=== PATIENT | male | born 1965 | race Caucasian/White ===

== ENCOUNTER 2020-08-22 08:04 | Emergency (ER) | payer BC, SELFPAY ==
--- NOTE | ~2020-08-22 | XR_ITS ---
XR chest 2V 08/22/2020 08:42 Indication: Chest tightness Procedure: PA and lateral views of the chest Comparison: 05/23/2015 Findings: Heart size is normal. Right lung clear. There is lingular atelectasis/scarring, chronic. No pleural effusion, focal pneumonia, edema or pneumothorax. No acute osseous abnormality. Impression: 1: Chronic lingular atelectasis/scarring. Reviewed, dictated and finalized at location [facility]. Impression: 1: Chronic lingular atelectasis/scarring.
[2020-08-22 08:10] VITALS: BP 158/93; PULSE 81; RESP 14; TEMP 36.4; O2SAT 98
--- NOTE | 2020-08-22 08:15 | ECG_ITS ---
Measurements Intervals [place] Rate: 70 P: -5 NV: 143 QRS: 8 QRSD: 86 T: 24 QT: 362 QTc: 392 Interpretive Statements SINUS RHYTHM WITH SINUS ARRHYTHMIA BASELINE WANDER- I, III, AVF NORMAL ECG Electronically Signed On 08-22-2020 8:18:46 CDT by Patrick Stone D.O.
[2020-08-22 08:19] VITALS: PULSE 80
--- NOTE | 2020-08-22 08:21 | ED.CHESTPAIN ---
HPI - Chest Pain General Chief Complaint: Chest Pain Stated Complaint: chest tightness Time Seen by Provider: 08/22/20 08:07 Source: patient, RN notes reviewed and old records reviewed Mode of arrival: ambulatory Limitations: no limitations History of Present Illness HPI narrative: This is a 55 year old male who presents for evaluation of midsternal chest tightness. He states he developed constant nonradiating midsternal chest tightness at 1 am this morning. He has associated cold sweats and diffuse abdominal discomfort. This started a few hours after eating a chili dog with custard ice cream at 10 pm last night. He denies associated back pain, sob, cough, nausea, vomiting, fever or diarrhea. He took 4 baby aspirin this morning but he has not tried anything else for his pain. MD complaint: chest discomfort Related Data Allergies Allergy/AdvReac Type Severity Reaction Status Date / Time Sulfa (Sulfonamide Allergy Mild Rash Verified 08/22/20 08:14 Antibiotics) Review of Systems Review of Systems: All systems reviewed & are unremarkable except as noted in HPI and below Constitutional: Constitutional: Denies chills and Denies fever(s) ENT: Denies sore throat Cardiovascular: Cardiovascular: Reports chest pain and Denies radiating jaw, neck or arm pain Respiratory: Respiratory: Denies cough and Denies dyspnea Gastrointestinal: Gastrointestinal: Reports abdominal pain, Denies diarrhea, Denies nausea and Denies vomiting Musculoskeletal: Musculoskeletal: Denies back pain Neurologic: Denies headache(s) [facility] Past Medical History Medical History (Updated 08/22/20 @ 11:59 by Katlin Dwyer MD) Ulcerative colitis Surgical History Surgical History (Updated 08/22/20 @ 08:22 by Katlin Dwyer MD) No pertinent past surgical history Exam Const: General: no acute distress and alert Orientation/consciousness: patient oriented x3 Eyes: EOM: EOMs intact bilaterally Resp: Effort & Inspection: normal respiratory effort and no retractions Auscultation: clear to auscultation bilaterally Cardio: Rate: regular rate Rhythm: regular rhythm Heart sounds: no murmurs GI: GI Palp: Yes Soft to palpation, No Tenderness to palpation present (GI) and No Guarding due to palpation present (GI) Auscultation: normal bowel sounds Neuro: General: patient oriented x3, moves all extremities and CN's II-XI intact bilaterally Psych: Mental Status: mental status grossly normal Affect: normal affect Course Reevaluation(s) Reevaluation #1: I discussed with patient that labs were unremarkable. His chest discomfort has resolved. I believe his symptoms are likely GI but he will follow up with PCP. I discussed no HI but he will still need to follow up with PCP to see if needed evaluated of heart disease. Date: 08/22/20 Time: 11:57 Vital Signs Vital signs: Vital Signs Temperature 97.6 F 08/22/20 08:10 Pulse Rate 81 08/22/20 08:10 Respiratory Rate 14 08/22/20 08:10 Blood Pressure 158/93 H 08/22/20 08:10 Pulse Oximetry 98 08/22/20 08:10 Temperature 97.6 F 08/22/20 08:10 Pulse Rate 69 08/22/20 12:00 Respiratory Rate 16 08/22/20 12:00 Blood Pressure 109/74 08/22/20 12:00 Pulse Oximetry 99 08/22/20 12:00 MDM - Chest Pain Medical Records Data Attestation: I reviewed the patient's medical records. Lab Data Attestation: I reviewed the patient's lab results. Result diagrams: 08/22/20 08:32 08/22/20 08:32 Labs: Lab Results 08/22/20 08/22/20 08/22/20 Range/Units 08:32 08:32 08:32 WBC 8.2 (4.5-10.0) K/mm3 RBC 4.75 (4.6-6.20) M/mm3 Hgb 14.4 (14.0-18.0) g/dL Hct 44.5 (42.0-52.0) % MCV 93.7 (80-100) fl MCH 30.3 (26-34) pg MCHC 32.4 (32-36) g/dl RDW 12.1 (11.5-14.5) % Plt Count 252 (150-375) k/mm3 MPV 10.4 (7.4-10.4) fl Immature Gran % (Auto) 0.5 (0-0.5) % Neut % (Auto) 43.4 L (45.5-73.1
[2020-08-22] MEDS: BELLADONNA ALK/PHENOB ELIX 10 ML, MAG HYDROX/ALUMINUM HYD/SIMETH 30 ML, LIDOCAINE HCL 2... PO (08:27)
[2020-08-22] MEDS: PANTOPRAZOLE SODIUM IV 40 MG VIAL IV PUSH (08:30)
[2020-08-22 08:42] LABS: Basophils Absolute Auto 0.1 K/mm3 (0.0-0.1); Basophils Percent Auto 0.9 % (0.2-1.2); Eosinophils Absolute Auto 0.4 K/mm3 (0-0.3); Eosinophils Percent Auto 4.6 % (0-4.4); Hematocrit 44.5 % (42.0-52.0); Hemoglobin 14.4 g/dL (14.0-18.0); Immature Granulocyte Absolute 0.04 K/mm3 (0.00-0.031); Immature Granulocyte Percent A 0.5 % (0-0.5); Lymphocytes Absolute Auto 3.39 K/mm3 (0.9-3.2); Lymphocytes Percent Auto 41.2 % (18.3-44.2); Mean Corpuscular HGB Conc 32.4 g/dl (32-36); Mean Corpuscular Hemoglobin 30.3 pg (26-34); Mean Corpuscular Volume 93.7 fl (80-100); Mean Platelet Volume 10.4 fl (7.4-10.4); Monocytes Absolute Auto 0.8 K/mm3 (0.1-0.6); Monocytes Percent Auto 9.4 % (2.6-8.5); Neutrophils Absolute Auto 3.6 K/mm3 (1.3-6.7); Neutrophils Percent Auto 43.4 % (45.5-73.1); Platelet Count Result 252 k/mm3 (150-375); Red Blood Count 4.75 M/mm3 (4.6-6.20); Red Cell Distribution Width 12.1 % (11.5-14.5); White Blood Count 8.2 K/mm3 (4.5-10.0)
[2020-08-22 08:47] LABS: Alanine Aminotransferase 13 U/L (4-50); Alkaline Phosphatase 80 U/L (38-126); Anion Gap 2 mmol/L (8-16); Aspartate Amino Transferase 27 U/L (17-59); Bilirubin,Total 0.2 mg/dL (0.2-1.3); Blood Urea Nitrogen 18 mg/dL (9-20); Calcium 9.1 mg/dL (8.4-10.2); Carbon Dioxide 30 mmol/L (22-30); Chloride 107 mmol/L (98-107); Estimated CRCL calculation 78 ml/min; Estimated Glomerular Filt Rate > 60; Glucose 107 mg/dL (75-110); Lipase 119 U/L (23-300); Potassium 4.2 mmol/L (3.4-5.0); Sodium 139 mmol/L (137-145)
[2020-08-22 08:59] LABS: Troponin I < 0.012 ng/mL (0.000-0.034)
[2020-08-22 09:11] VITALS: BP 123/75; PULSE 70; RESP 14; O2SAT 99
[2020-08-22 09:11] LABS: INR 0.8; Prothrombin Time 11.6 Seconds (11.1-14.7)
[2020-08-22 09:12] LABS: Partial Thromboplastin Time 29.1 SECONDS (22.3-36.8)
[2020-08-22 09:20] LABS: D Dimer 0.27 ug/mL (<0.48)
[2020-08-22 10:20] VITALS: BP 107/84; PULSE 67; RESP 14; O2SAT 98
[2020-08-22 11:21] VITALS: BP 107/77; PULSE 67; RESP 14; O2SAT 98
[2020-08-22 11:43] LABS: Troponin I < 0.012 ng/mL (0.000-0.034)
[2020-08-22 12:00] VITALS: BP 109/74; PULSE 69; RESP 16; O2SAT 99
== END 2020-08-22 12:37 | disposition home or self-care (01) ==
PROVIDERS: Emergency Provider General Practice
DX: R07.89 Other chest pain (principal)
CPT/HCPCS: 36415; 71046; 80048; 80076; 83690; 84484; 85025; 85380; 85610; 85730; 93005; 96374; 99284; A9270; C9113

== ENCOUNTER 2023-09-16 12:02 | Day surgery (SDC) | payer OTHER, SELFPAY ==
[2023-09-16] VITALS (8 sets, daily range): BP systolic 108–132; BP diastolic 64–86; PULSE 92–117; RESP 13–18; TEMP 36.2–36.9; O2SAT 93–100
--- NOTE | ~2023-09-16 | CT_ITS ---
EXAMINATION: CT abdomen pelvis w con DATE: 09/16/2023 13:56 INDICATION: Right upper and lower quadrant abdominal pain TECHNIQUE: Computed tomography (CT) of the abdomen and pelvis was performed with 100 CC Omnipaque 350 intravenous contrast. Automated exposure control and iterative reconstruction technique were employe d. Exam dose: 1062.56 mGy-cm total exam DLP. COMPARISON: None. FINDINGS: The lung bases are clear of infiltrate or consolidation. Normal heart size. No pericardial or pleural effusion. Very small sliding hiatal hernia. 1.5 cm peripherally calcified gallstone. No gallbladder wall thickening or pericholecystic fluid or f at stranding. The liver, spleen, pancreas, adrenal glands are unremarkable. There are several left renal cysts, the largest 12 mm. No ureteral calculus or hydroureteronephrosis. Minimal prostate calcification and prostate enlargemen t. The urinary bladder is unremarkable. Normal caliber of the abdominal aorta. No intraperitoneal or retroperitoneal or pelvic mass lesion or adenopathy or ascites. The appendix is dilated up to approximately 1.4 cm diameter. There is thickening of the appendiceal wall. There is surrounding fat infiltration and thickening of the anterior pararenal fascia and late roconal fascia. Diverticulosis of left and right colon; no CT evidence of diverticulitis. No bowel obstruction, bowel wall thickening, pneumatosis or intraperitoneal free air. Small bilateral fat-containing inguinal hernias. Small fat-containing umbilical hernia. IMPRESSION: Acute appendicitis, with mild periappendiceal inflammatory change. No abscess or free ai r is identified Diverticulosis of left and right colon; no evidence of diverticulitis Cholelithiasis Very small sliding hiatal hernia Reviewed, dictated and finalized at Location A. Reviewed, dictated and finalized at location B. IMPRESSION: Acute appendicitis, with mild periappendiceal inflammatory change. No abscess or free air is identified Diverticulosis of left and right colon; no evidence of diverticulitis Cholelithiasis Very small sliding hiatal hernia
[2023-09-16 12:45] LABS: Basophils Absolute Auto 0.1 K/mm3 (0.0-0.1); Basophils Percent Auto 0.5 % (0.2-1.2); Eosinophils Absolute Auto 0.2 K/mm3 (0-0.3); Eosinophils Percent Auto 1.4 % (0-4.4); Hematocrit 47.1 % (42.0-52.0); Hemoglobin 15.6 g/dL (14.0-18.0); Immature Granulocyte Absolute 0.06 K/mm3 (0.00-0.031); Immature Granulocyte Percent A 0.4 % (0-0.5); Lymphocytes Absolute Auto 2.22 K/mm3 (0.9-3.2); Lymphocytes Percent Auto 13.1 % (18.3-44.2); Mean Corpuscular HGB Conc 33.1 g/dl (32-36); Mean Corpuscular Volume 93.6 fl (80-100); Mean Platelet Volume 10.5 fl (7.4-10.4); Monocytes Absolute Auto 1.1 K/mm3 (0.1-0.6); Monocytes Percent Auto 6.7 % (2.6-8.5); Neutrophils Absolute Auto 13.2 K/mm3 (1.3-6.7); Neutrophils Percent Auto 77.9 % (45.5-73.1); Platelet Count Result 279 k/mm3 (150-375); Red Blood Count 5.03 M/mm3 (4.6-6.20); White Blood Count 16.9 K/mm3 (4.5-10.0)
[2023-09-16 12:57] LABS: Alanine Aminotransferase 15 U/L (6-50); Albumin Level 4.6 g/dL (3.5-5.1); Alkaline Phosphatase 75 U/L (38-126); Anion Gap 9 mmol/L (4-12); Aspartate Amino Transferase 23 U/L (17-59); Bilirubin,Total 0.9 mg/dL (0.2-1.3); Blood Urea Nitrogen 13 mg/dL (9-20); Calcium 9.4 mg/dL (8.4-10.2); Carbon Dioxide 24 mmol/L (22-30); Chloride 104 mmol/L (98-107); Estimated CRCL calculation 91 ml/min; Estimated Glomerular Filt Rate > 60; Glucose 108 mg/dL (65-110); Lipase 81 U/L (23-300); Potassium 4.2 mmol/L (3.4-5.0); Sodium 137 mmol/L (137-145)
[2023-09-16 12:59] LABS: Lactic Acid Reflex 1.2 mmol/L (0.7-2.0)
[2023-09-16 13:27] LABS: Appearance Urine Clear (Clear); Bilirubin Urine Negative (Negative); Blood Urine Negative (Negative); Color Urine Yellow (Yellow); Glucose Urine UA Negative (Negative); Ketones Urine Negative (Negative); Leukocyte Esterase Ur Negative LEU/UL (Negative); Nitrate Urine Negative (Negative); Protein Urine Negative (Negative); Specific Grav Ur 1.013 (1.001-1.035); Urobilinogen Urine 0.2 mg/dL (<2.0)
[2023-09-16 13:30] LABS: Add Urine Microscopic? NO
--- NOTE | 2023-09-16 14:25 | ED.ABDPAIN ---
HPI - Abdominal Pain General Chief Complaint: Abdominal Pain Stated Complaint: constipation, tenderness right side Time Seen by Provider: 09/16/23 13:17 History of Present Illness HPI narrative: 58-year-old male presents to the emergency room for evaluation of right upper quadrant abdominal pain that began this morning. Patient denies fever. States pain radiates into his right lower quadrant. Reports feeling constipated with the small bowel movement this morning. Denies any blood in the stool. Patient also complaining of feeling bloated. Complain with nausea no vomiting. Related Data Allergies Allergy/AdvReac Type Severity Reaction Status Date / Time Sulfa (Sulfonamide Allergy Mild Rash Verified 09/16/23 12:32 Antibiotics) Review of Systems Review of Systems: ROS unremarkable except for stated in HPI PMF Past Medical History Medical History Ulcerative colitis Surgical History Surgical History No pertinent past surgical history Exam Narrative: GENERAL: Well-appearing, well-nourished, no physical limitations, and in no acute distress. HEAD: Normocephalic, atraumatic. EYES: Conjunctivae normal, PERRLA and EOMI. CHEST: Clear to auscultation. No respiratory distress. No wheezes rales or rhonchi. No tenderness. HEART: Regular rate and rhythm. No murmur heard. Normal peripheral pulses. ABDOMEN: Soft, right upper quadrant tenderness, nondistended, normal active bowel sounds. Negative heel strike. Negative psoas and obturator signs. No rebound tenderness BACK: No CVA tenderness EXTREMITIES: Normal range of motion. No edema. No clubbing or cyanosis SKIN: Warm, dry, no rash. No noted wounds NEURO: No focal deficits. Alert and oriented x3. MAEW. CN's II-XI intact bilaterally, normal gait PSYCH: Cooperative. Normal mood and affect. Course Course Emergency Course: MD Sykes service at bedside to evaluate patient. Patient to go to surgical suite this afternoon. Vital Signs Vital signs: Vital Signs Temperature 36.9 C 09/16/23 12:15 Pulse Rate 100 09/16/23 12:15 Respiratory Rate 18 09/16/23 12:15 Blood Pressure 115/82 09/16/23 12:15 Pulse Oximetry 100 09/16/23 12:15 Oxygen Delivery Room Air 09/16/23 12:15 Temperature 36.9 C 09/16/23 12:15 Pulse Rate 100 09/16/23 12:15 Respiratory Rate 18 09/16/23 12:15 Blood Pressure 115/82 09/16/23 12:15 Pulse Oximetry 100 09/16/23 12:15 Oxygen Delivery Room Air 09/16/23 12:15 MDM - Abdominal Pain Lab Data 09/16/23 12:36 09/16/23 12:36 Labs: Lab Results 09/16/23 09/16/23 Range/Units 12:36 13:20 WBC 16.9 H (4.5-10.0) K/mm3 RBC 5.03 (4.6-6.20) M/mm3 Hgb 15.6 (14.0-18.0) g/dL Hct 47.1 (42.0-52.0) % MCV 93.6 (80-100) fl MCH 31.0 (26-34) pg MCHC 33.1 (32-36) g/dl RDW 12.0 (11.5-14.5) % Plt Count 279 (150-375) k/mm3 MPV 10.5 H (7.4-10.4) fl Immature Gran % (Auto) 0.4 (0-0.5) % Neut % (Auto) 77.9 H (45.5-73.1) % Lymph % (Auto) 13.1 L (18.3-44.2) % [place] % (Auto) 6.7 (2.6-8.5) % Eos % (Auto) 1.4 (0-4.4) % Baso % (Auto) 0.5 (0.2-1.2) % Lymph # (Auto) 2.22 (0.9-3.2) K/mm3 [place] # (Auto) 1.1 H (0.1-0.6) K/mm3 Eos # (Auto) 0.2 (0-0.3) K/mm3 Baso # (Auto) 0.1 (0.0-0.1) K/mm3 Abs Immat Gran (auto) 0.06 H (0.00-0.031) K/mm3 Absolute Neuts (auto) 13.2 H (1.3-6.7) K/mm3 Absolute Nucleated RBC 0.000 (0.0-0.012) K/mm3 Nucleated RBC % 0.0 (0.0-0.2) % Sodium 137 (137-145) mmol/L Potassium 4.2 (3.4-5.0) mmol/L Chloride 104 (98-107) mmol/L Carbon Dioxide 24 (22-30) mmol/L Anion Gap 9 (4-12) mmol/L BUN 13 D (9-20) mg/dL Creatinine 0.90 (0.7-1.3) mg/dL Estim Creat Clear Calc 91 ml/min Estimated GFR > 60 (59 - ) Glucose 108 (65-110) mg/dL Lactic Acid
--- NOTE | 2023-09-16 14:59 | PM.HPGS ---
History of Present Illness History of Present Illness Consent: Risks, benefits, and alternatives have been discussed and questions answered. Patient agrees to proceed with procedure. Chief complaint: Right-sided abdominal pain Narrative: Jered Martin is a 58 year old male who presented to the ER today with complaints of right-sided abdominal pain x 24 hours. He reports mild periumbilical pain starting around 2:00 p.m. yesterday afternoon. He was able to go to sleep last night, but woke up this morning with more abdominal pain. His pain localized to the right lower quadrant around 9:00 a.m.. He reports associated nausea, but no vomiting, fever, or chills. Throughout the day, his pain progressively got worse and he began to notice right-sided tenderness. He tried to call his PCP, but was unable to be seen today. Therefore, he came into the ER for evaluation. Labs showed a white blood cell count [id number], but otherwise unremarkable. CT scan of the abdomen and pelvis showed acute appendicitis, with mild periappendiceal inflammatory change. No abscess or free air is identified. Our service was consulted by the ED physician and he is now seen in the ER. He is afebrile and vital signs stable. Review of Systems Review of Systems: All systems reviewed & are unremarkable except as noted in HPI and below PMFSH Past Medical History Medical History (Updated 09/16/23 @ 15:04 by PRASHANT Jose) Hypertension Ulcerative colitis Surgical History Surgical History (Updated 09/16/23 @ 15:04 by PRASHANT Jose) History of colonoscopy No pertinent past surgical history Meds Home Medications and Allergies Home Medications Medication Instructions Recorded Confirmed Type omeprazole 20 mg capsule,delayed 20 mg PO DAILY #30 caps 08/22/20 Rx release Allergies Allergy/AdvReac Type Severity Reaction Status Date / Time Sulfa (Sulfonamide Allergy Mild Rash Verified 09/16/23 12:32 Antibiotics) Vital Signs Vital Signs - 24 hr 09/16/23 12:15 09/16/23 14:49 Temperature 98.4 F Pulse Rate 100 98 Respiratory Rate 18 16 Blood Pressure 115/82 132/86 Pulse Oximetry 100 98 Oxygen Delivery Room Air Exam Const: General: comfortable and no acute distress Nutritional Appearance: average body habitus Orientation/consciousness: patient oriented x3 HENMT: Head: normocephalic and atraumatic Ears: hearing grossly normal bilaterally Mouth: Yes moist mucous membranes Eyes: General: appearance normal, both eyes and all related structures Pupils: Equal, round and reactive pupils present Neck: Neck: normal visual inspection and full ROM Resp: Effort & Inspection: no respiratory distress Auscultation: clear to auscultation bilaterally Cardio: Rate: regular rate Rhythm: regular rhythm Heart sounds: S1 normal heart sound present and S2 normal heart sound present Peripheral pulses: Peripheral pulses 2+ throughout GI: Inspection: non-distended GI Palp: Yes Soft to palpation, Yes Tenderness to palpation present (GI) (Right lower quadrant), No Guarding due to palpation present (GI), Yes No hepatosplenomegaly present, Yes Hernia present (Soft, reducible umbilical hernia with no overlying skin color changes) and No Rebound tenderness present Percussion: Yes normal to percussion Auscultation: normal bowel sounds Skin: General skin exam: normal color Neuro: General: moves all extremities and no focal motor deficits Speech: normal speech Motor exam (neuro): 5/5 motor strength present throughout Extrem: General: normal to inspection and no edema Psych: Mental Status: mental status grossly normal Attitude: cooperative Insight: Good insight present (Psych) Judgement: Good judgement present (Psych) Results Results Additional studies: ITS Impressions Abdomen/Pelvis CT 09/16/23 13:57 IMPRESSION: Acute appendicitis, with mild periappendiceal inflammatory change. No abscess or free air is identified Div
--- NOTE | 2023-09-16 14:59 | WPDANESEPPF ---
Anes - Initial Pre Proc Eval Procedure: Operation Date: 09/16/23 15:30 Proposed Procedures p Laparoscopic Appendectomy - Armand Sykes MD Date/Time: 09/16/23 14:59 Pre Op Diagnosis: Right-sided abdominal pain Patient Data Age: 58 Gender: M Height: 1.73 m Weight: 100 kg Last Vital Signs Temp 36.9 C 09/16/23 12:15 Pulse 98 09/16/23 14:49 Resp 16 09/16/23 14:49 BP 132/86 09/16/23 14:49 Pulse Ox 98 09/16/23 14:49 O2 Del Method Room Air 09/16/23 12:15 Allergies Allergy/AdvReac Type Severity Reaction Status Date / Time Sulfa (Sulfonamide Allergy Mild Rash Verified 09/16/23 12:32 Antibiotics) Home Medications Medication Instructions Recorded Confirmed Type omeprazole 20 mg capsule,delayed 20 mg PO DAILY #30 caps 08/22/20 Rx release Laboratory Tests 09/16/23 09/16/23 12:36 13:20 WBC 16.9 H K/mm3 (4.5-10.0) RBC 5.03 M/mm3 (4.6-6.20) Hgb 15.6 g/dL (14.0-18.0) Hct 47.1 % (42.0-52.0) MCV 93.6 fl (80-100) MCH 31.0 pg (26-34) MCHC 33.1 g/dl (32-36) RDW 12.0 % (11.5-14.5) Plt Count 279 k/mm3 (150-375) MPV 10.5 H fl (7.4-10.4) Immature Gran % (Auto) 0.4 % (0-0.5) Neut % (Auto) 77.9 H % (45.5-73.1) Lymph % (Auto) 13.1 L % (18.3-44.2) [place] % (Auto) 6.7 % (2.6-8.5) Eos % (Auto) 1.4 % (0-4.4) Baso % (Auto) 0.5 % (0.2-1.2) Lymph # (Auto) 2.22 K/mm3 (0.9-3.2) [place] # (Auto) 1.1 H K/mm3 (0.1-0.6) Eos # (Auto) 0.2 K/mm3 (0-0.3) Baso # (Auto) 0.1 K/mm3 (0.0-0.1) Abs Immat Gran (auto) 0.06 H K/mm3 (0.00-0.031) Absolute Neuts (auto) 13.2 H K/mm3 (1.3-6.7) Absolute Nucleated RBC 0.000 K/mm3 (0.0-0.012) Nucleated RBC % 0.0 % (0.0-0.2) Sodium 137 mmol/L (137-145) Potassium 4.2 mmol/L (3.4-5.0) Chloride 104 mmol/L (98-107) Carbon Dioxide 24 mmol/L (22-30) Anion Gap 9 mmol/L (4-12) BUN 13 D mg/dL (9-20) Creatinine 0.90 mg/dL (0.7-1.3) Estim Creat Clear Calc 91 ml/min Estimated GFR > 60 (59 - ) Glucose 108 mg/dL (65-110) Lactic Acid 1.2 mmol/L (0.7-2.0) Calcium 9.4 mg/dL (8.4-10.2) Total Bilirubin 0.9 mg/dL (0.2-1.3) AST 23 U/L (17-59) ALT 15 U/L (6-50) Alkaline Phosphatase 75 U/L (38-126) Total Protein 8.0 g/dL (6.3-8.2) Albumin 4.6 g/dL (3.5-5.1) Lipase 81 U/L (23-300) Urine Color Yellow (Yellow) Urine Appearance Clear (Clear) Urine pH 8.0 (5.0-9.0) Ur Specific [place] 1.013 (1.001-1.035) Urine Protein Negative mg/dL (Negative) Urine Glucose (UA) Negative mg/dL (Negative) Urine Ketones Negative mg/dL (Negative) Ur Blood (Man) Negative (Negative) Urine Nitrate Negative (Negative) Urine Bilirubin Negative (Negative) Urine Urobilinogen 0.2 mg/dL (<2.0) Leukocyte Esterase Rfl Negative KAITLYNN/UL (Negative) Patient hx anesthesia problems: none Family hx anesthesia problems: none Results Review: All pre-operative results and documents have been reviewed as part of the pre-operative evaluation. [facility] Past Medical History Medical History Ulcerative colitis Surgical History Surgical History No pertinent past surgical history Anes - Eval Final PreProcedure Day of Procedure 09/16/23 14:59 Patient weight: obese Heart: regular rate and rhythm Lungs: clear to auscultation Airway: Mallampati scale class II Neurological: alert and oriented Last oral intake: >/= 8 hours ASA classification: III Emergent: no Anesthetic plan: proceed Anesthesia type and monitoring: general ETT and
[2023-09-16] MEDS: cefoTEtan DISODIUM INJ 2 GM in DEXTROSE 5% IN WATER 50 ML IVPB (15:02)
[2023-09-16] MEDS: LACTATED RINGERS 1,000 ML 30 ML IV CONT ×2 (15:20→17:26)
--- NOTE | 2023-09-16 15:37 | WPDHPUPDATE1 ---
History and Physical Update Update Date/Time: 09/16/23 15:37 History and Physical has been reviewed, including an updated exam of the patient. There are NO changes in the patient's condition. Risks, benefits, and alternatives have been discussed and questions answered. Patient agrees to proceed with procedure.
[2023-09-16] MEDS: LIDO 1%/EPINEPHRINE 1:100,000 20 ML VIAL 30 ML INFILTRATE (15:58)
[2023-09-16] MEDS: BUPivacaine HCL 0.5% 10 ML AMP 30 ML INFILTRATE (15:59)
[2023-09-16] MEDS: KETOROLAC 15 MG/ML VIAL (*BKC) IV PUSH (17:17)
--- NOTE | 2023-09-16 17:23 | P.OP_ITS ---
Procedure Note - Detailed Date of Procedure 09/16/23 Pre-op Diagnosis Acute appendicitis Post-op Diagnosis Same Procedure Performed Laparoscopic appendectomy Surgeon Armand Sykes MD Anesthesia General Indications Patient is a 51-year-old gentleman who presented to the emergency room 1 day history of worsening right lower quadrant abdominal pain. He had a white blood count [address] scan abdomen pelvis showed a dilated and acutely inflamed appendix with periappendiceal inflammation. He presents now for a laparoscopic appendectomy. Findings Acutely inflamed appendix lateral to the cecum. The cecum was relatively high- riding just inferior to the right lobe of the liver. The appendix was not perforated but there was periappendiceal inflammation. Description of Procedure After informed consent was obtained patient brought to the operating room was placed supine position and then general endotracheal anesthesia was administered. A Mendez catheter was placed decompress the bladder. The arm was then prepped and draped usual sterile fashion. Time-out was then performed correctly identifying the patient as well as procedure to be performed. He was given IV antibiotics in the emergency room. Her proceeded to enter the abdomen left upper quadrant utilizing a 5mm Optiview port. Once inside the abdomen insufflated to adequate pneumoperitoneum of 15mm of CO2. Then under direct visualization placed a 5mm suprapubic trocar port and another 5mm right lower quadrant trocar port and a 12mm periumbilical trocar port. The appendix is visualized in the right mid lateral abdominal wall. It was lateral to the cecum. Utilizing laparoscopic graspers I was able to identify the base of the appendix as was the terminal ileum. Many defect through the mesoappendix just at the base and then used a 45mm Endo-JEANIE stapler to divide the appendix. The appendix was dissected and the appendiceal stump was flush with the cecum. I then utilized vascular reload to the Endo-JEANIE stapler and divided the mesoappendix. Appendix was then placed into an Endo-Catch bag and brought out through the umbilical trocar port site. It was sent to pathology for examination I irrigated out the right lower quadrant and right lateral portion of the abdomen with sterile saline solution. Hemostasis was good. I then removed all the trocar ports under visualization all port sites appeared hemostatic. I then allowed the abdomen decompressed. The patient is small umbilical hernia and this defect was closed 0 Vicryl suture in a figure-eight fashion and closing the umbilical trocar port site. All the port sites were then closed at skin level utilizing a running subcuticular 4 Monocryl suture. The incisions were then cleaned the skin glue sterile dressings were applied. The patient tolerated the procedure well no complications. All sponges, needles, and instrument counts were correct at the end procedure. EBL was _25__cc. The patient was awakened and taken to recovery in stable and satisfactory condition. Implants None Estimated Blood Loss 25 Drains No Packing No Pathology Yes (Appendix to pathology) Complications No immediate complications Condition Stable Disposition PACU [facility] Billing Surgery - Charge Forward: Surgery Billing
== END 2023-09-16 18:50 | disposition home or self-care (01) ==
LOC: ANHED 14:39 → ANHSURGERY 15:01
PROVIDERS: Emergency Medicine; Emergency Provider Nurse Practitioner Family; Visit Provider Surgery
PROC: 0DTJ4ZZ Resection of Appendix, Percutaneous Endoscopic Approach (ICD-10-PCS; CPT 44970; principal; 2023-09-16 15:30)
DX: K35.80 Unspecified acute appendicitis (principal); E66.9 Obesity, unspecified; Z68.33 Body mass index [BMI] 33.0-33.9, adult
CPT/HCPCS: 44970; 36415; 74177; 80053; 81003; 83605; 83690; 85025; 88304; 99285; J0330; J1100; J1170; J1885; J2250; J2405; J2704; J3010; J7120; Q9967

== ENCOUNTER 2024-09-28 07:05 | Outpatient (CLI) | payer OTHER, SELFPAY ==
--- NOTE | ~2024-09-28 | MR_ITS ---
MRI of the brain Clinical History: Benign neoplasm of cranial nerves Technique: Axial and sagittal T1-weighted images were acquired. These were followed by axial T2-weigh aden, diffusion weighted, gradient, and FLAIR images. Thin cut coronal and axial T1-weighted and T2-we ighted images were acquired through the internal auditory canals. Following intravenous administratio n of 20 cc ProHance gadolinium, T1-weighted fat-sat imaging was performed through the brain in the ax ial and coronal planes. Thin cut axial and coronal T1-weighted postcontrast imaging was also performe d through the internal auditory canals. Findings: No abnormal signal seen in the brain parenchyma. No acute infarct, intracranial hemorrhage, or mass lesion seen. Ventricles and subarachnoid spaces are unremarkable. Orbits are unremarkable. Paranasal sinuses and m astoid air cells are clear. Major intracranial flow voids are intact. Sagittal midline structures are intact. No abnormal mass lesion seen at the internal auditory canals or CP angle regions. No abnormal postcontrast enhancement identified. IMPRESSION: Unremarkable exam. Reviewed, dictated and finalized at location M. IMPRESSION: Unremarkable exam.
--- OUTSIDE RECORDS SUMMARY | 2024-09-28 07:09 | XMS_ITS | Clinical Summary ---
Author Organization [facility] Address [address] [place] [address] Care Team Providers Care Rn Training Name Role Phone Unavailable Primary Care Provider Unavailabl e Source Comments [facility],non-owned Affiliates and Associated Physician Practices is amultiple site organization consisting of ambulatory clinics and hospital sitesin [place], [place], [place] and [place]. This disclosure is being madepursuant to the Care Everywhere program and may not contain all information available regarding this patient. 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 Gender Identity Not on file Sexual Orientation Not on file Plan of Treatment Health Maintenance Due Date Last Done Comments COLOGUARD (AGES 45-75) - COL ON CA SCREENING 1966 COLON MONITORING 1966 COLONOSCOPY - COLON CA SCREENING 1966 CT COLONOGRAPHY - COLON CA SCREENING 1966 Colorectal Cancer Screening 1966 FIT - COLON CA SCREENING 1966 FLEX SIG - COLON CA SCREENING 1966 LIPID TESTING 1966 HIV SCREENING 1981 HEPATITIS C SCREENING 06/20/1984 DTAP/TDAP/TD VACCINES (1 - Tdap) 1985 HEPATITIS B VACCINE (1 of 3 - 19+ 3-dose series) 1985 PNEUMOCOCCAL VACCINE 50+ (1 of 1 - PCV) 2016 ZOSTER VACCINE (1 of 2) 2016 COVID-19 VACCINE (2023-2 5 season) 2023 DEPRESSION SCREENING 04/27/2024 INFLUENZA VACCINE (Season Ended) 2024 HIB VACCINE Aged Out No longer eligi ble based on patient's age to complete this topic HPV VACCINE Aged Out No longer eligi ble based on patient's age to complete this topic MENINGOCOCCAL (Group B) VACC INE SHARED DECISION-MAKING Aged Out No longer eligibl e based on patient's age to complete this topic MENINGOCOCCAL GROUPS A/C/Y/W VACCINE Aged Out No longer eligible b ased on patient's age to complete this topic Procedures Procedure Name Priority Date/Time Associated Diagnosis Comments DERMATOPATHOLOGY Routine 07/05/2024 3:38 PM CDT from Last 3 Months Results * DERMATOPATHOLOGY (07/05/2024 3:38 PM CDT) Case Report Dermatopathology Report Case: [id number] Authorizing Provider: Rosalba Pereira DO Collected: 07/05/2024 03:38 PM Ordering Location: [facility] - Received: 07/07/2024 06:47 AM DermPath Lab Pathologist: Reva Chen MD Specimen: Skin, right crown 4:13 PM CDT DERMATOPATHOLOGY LABORATORY Final Diagnosis Specimen A. 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 The specimen consists of a shave biopsy measuring 7x5x2 mm. Jar 0. 4:13 PM CDT DERMATOPATHOLOGY LABORATORY Microscopic Description Specimen A. SKIN, right crown: Within the dermis there are oval, spindle-shaped and dendritic melanocytes with melanophages. 4:13 PM CDT DERMATOPATHOLOGY LABORATORY Disclaimer An external and internal positive and negative controls are appropriate for the histochemical, immunohistochemical and immunofluorescence stain(s) in this case (if any), except where stated explicitly. The performance characteristics of the stain(s) cited in this report were developed and its performance characteristic determined by the Dermatopathology Laboratory at [facility], directed by Dr. Saundra Morales. These tests need not be, and therefore are not, approved by the [place] Food and Drug Administration. The tests are used for clinical purposes. Billing Codes Specimen Charges Stain Charges 49252 1 5 4:13 PM CDT DERMATOPATHOLOGY LABORATORY Embedded Images 5 4:13 PM CDT DERMATOPATHOLOGY LABORATORY Pathology/Cytolo gy TISSUE SPECIMEN FROM SKIN / Unknown 07/05/2024 3:38 PM CDT 07/07/2024 6:47 AM CDT us Rosalba Pereira DO LAB - PATHOLOGY/CYTOLOGY ORDERABLES Final Result DERMATOPATHOLOGY LABORATORY [facility] - Department of Dermatology [facility] [address] [place] [address], [address] [phone] from Last 3 Months Insurance [employer] * Guarantor: JERED MARTIN Account Type Relation to Patient Date of Phone Billing Address Personal/Family [address] [place] [address] SELF PAY NO INSURANCE Member Subscriber Plan / Payer (Ef fective for All Dates) Name:Jered Martin Member ID:Not on file Relation to Subscriber:Not on file Name:JERED MARTIN Subscriber ID:Not on file Address: [place] [address] Payer ID:Not on file Group ID:Not on file Type:Self Pay Address: [place], [place] * Guarantor: JERED MARTIN Account Type Relation to Patient Date of Phone Billing Address Personal/Family [address] [place] [address] SELF PAY NO INSURANCE Member Subscriber Plan / Payer (Ef fective for All Dates) Name:Jered Martin Member ID:Not on file Relation to Subscriber:Not on file Name:JERED MARTIN Subscriber ID:Not on file Address: [place] [address] Payer ID:Not on file Group ID:Not on file Type:Self Pay Address: [place], [place] * Guarantor: JERED MARTIN Account Type Relation to Patient Date of Phone Billing Address Personal/Family [address] [place] [address] SELF PAY NO INSURANCE Member Subscriber Plan / Payer (Ef fective for All Dates) Name:Jered Martin Member ID:Not on file Relation to Subscriber:Not on file Name:JERED MARTIN Subscriber ID:Not on file Address: [place] [address] Payer ID:Not on file Group ID:Not on file Type:Self Pay Address: [place], [place]
--- OUTSIDE RECORDS SUMMARY | 2024-09-28 07:09 | XMS_ITS | Encounter Summary ---
Author Organization [facility] Address [address] [place] [address] Care Team Providers Care Manager Project Management Name Role Phone Unavailable Primary Care Provider Unavailabl e Encounter Details Date Type Department Care Team (Late st Contact Info) Description 07/05/2024 Lab Requisition [facility] - DermPath Lab [address] [facility] [facility] [place] [id number] Rosalba Pereira DO [address] [facility] [address] [place] [address] Social History Tobacco Use Types Packs/Day Years Used Date Smoking Tobacco: Never Assessed Sex and Gender Information Value Date Recorded Sex Assigned at Not on file 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 Gender Identity Not on file Sexual Orientation Not on file documented as of this encounter Plan of Treatment Not on file documented as of this encounter Procedures Procedure Name Priority Date/Time Associated Diagnosis Comments DERMATOPATHOLOGY Routine 07/05/2024 3:38 PM CDT documented in this encounter Results * DERMATOPATHOLOGY (07/05/2024 3:38 PM CDT) Case Report Dermatopathology Report Case: [id number] Authorizing Provider: Rosalba Pereira DO Collected: 07/05/2024 03:38 PM Ordering Location: [facility] - Received: 07/07/2024 06:47 AM DermPath Lab Pathologist: Reva Chen MD Specimen: Skin, right crown 5 4:13 PM CDT DERMATOPATHOLOGY LABORATORY Final Diagnosis Specimen A. 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 Saundra Morales. These tests need not be, and therefore are not, approved by the [place] Food and Drug Administration. The tests are used for clinical purposes. Billing Codes Specimen Charges Stain Charges 35025 1 4:13 PM CDT DERMATOPATHOLOGY LABORATORY Embedded Images 4:13 PM CDT DERMATOPATHOLOGY LABORATORY Pathology/Cytolo gy TISSUE SPECIMEN FROM SKIN / Unknown 07/05/2024 3:38 PM CDT 07/07/2024 6:47 AM CDT us Rosalba Pereira DO LAB - PATHOLOGY/CYTOLOGY ORDERABLES Final Result DERMATOPATHOLOGY LABORATORY [facility] - Department of Dermatology [address] [place] [address], [facility] [phone] documented in this encounter Visit Diagnoses Not on filedocumented in this encounter
--- OUTSIDE RECORDS SUMMARY | 2024-09-28 07:09 | XMS_ITS | Data Portability ---
Author Organization [place] - [facility] 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 General information on sleep disordered breathing, evaluation of sleep disordered breathing, treatment with PAP therapy, and living with PAP therapy were covered. PSG is medically necessary to determine the degree of management of sleep apnea. We discussed with the patient the impact of weight on: Sleep disordered breathing Hypertension Mixed hyperlipidemia LORETTA Left ankle ligament tear We discussed with the patient the benefit of PAP therapy on: Sleep disordered breathing Hypertension LORETTA Educated the patient on sleep hygiene measures. Relaxing rituals to rest easy, understanding foods with positive and negative impact on sleep, creating a peaceful sleep environment, timing of exercise, using herbal sleep aids, and practicing sleep-friendly meditation were covered. To determine how much sleep is needed, the patient will assess where he falls on the spectrum, examine what lifestyle factors such as work schedules and stress are affecting the quality and quantity of sleep. In general, adults need 7-9 hours of sleep. Educated the patient regarding foods that promote sleep. These include but are not limited to cherries, bananas, toast, oatmeal, and warm milk. Educated the patient regarding foods and drinks to avoid before bedtime. These include but are not limited to aged cheese, chocolate, spicy foods, tomato-based sauces, soy, ginseng tea and processed meat. Advocated influenza vaccination annually and pneumonia vaccination in 2031. Advocated weight loss through diet and exercise. Patient's ideal body weight according to height and gender is up to 165 lbs. Encouraged patient to adjust caloric intake to maintain/achieve ideal body weight, emphasizing on fruits, vegetables, whole grains, and fat-free or low-fat products. These include lean meats, poultry, fish, beans, eggs, and nuts and foods that are low in saturated fats, trans-fats, cholesterol, salt (sodium), and glycemic index. Stressed the importance of regular exercise up to the patient's capacity limits. In this case, we recommend 20 min daily walking, 2 days a week of resistance training. Patient to monitor BP daily and bring records to PCP for further management. 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 Plan: The following were reviewed and explained to the patient: [facility] home sleep study 08/20/23, AHI = 8, supine AHI = 11 [facility] [place] sleep study 11/18/23 sleep onset = 2.5 minutes, REM onset = 67 minutes, ResMed medium AirFit F20 full face mask @ 11 cmH2O, PLMI = 46 Non-pharmacologic therapy options for periodic limb movement disorder include avoidance of aggravating drugs and substances, mental alerting activities, short daily hemodialysis for patients in renal failure, exercise, leg massage, stretching calf muscles, use of a weighted blanket and applied heat. Patient will cut down on caffeine intake. We will check BUN, Creatinine, Vitamin E, Vitamin B12, RBC folate, Iron, TIBC, Ferritin, ESR, Magnesium, Hgb and Hct levels. Educated the patient on problems and solutions associated with positive airway pressure (PAP) use. Difficulty tolerating pressure, mask leaks, intolerance of interface, nasal congestion, claustrophobic response, dry mouth, and unintentional mask removal during sleep were covered. Patient's mask leaks air. We will ensure the mask is situated properly. Patient can wear protective eye covering during sleep, and the mask can be resized. ResMed Air Sense 11 auto set unit with heated humidifier, supplies and ResMed medium AirFit F20 full face mask @ 11 cmH2O ordered. Further titration will be based on clinical response. Provided the patient with a list of local home care stores where positive airway pressure (PAP) units, accoutrement, and services are available. Home care store selection is based on patient's insurance carrier. Patient will setup an appointment with [facility] for supplies and pressure adjustments. A major predictor of success with use of PAP is follow-up with both the respiratory supplier and the treating physician. The respiratory supplier optimally will follow-up within two weeks after starting use while the treating physician optimally will follow-up within 90 days after starting therapy to assess adherence and effectiveness of treatment. The download results can show the treating physician information about adherence to treatment, residual AHI while on treatment and presence of large mask leakage. This information is especially helpful if the patient has residual sleepiness despite treatment. General information on sleep disordered breathing, evaluation of sleep disordered breathing, treatment with PAP therapy, and living with PAP therapy were covered. We discussed with the patient the impact of weight on: Sleep disordered breathing Hypertension Mixed hyperlipidemia L[place] Left ankle ligament tear We discussed with the patient the benefit of PAP therapy on: Sleep disordered breathing Hypertension L[place]ETTA Educated the patient on sleep hygiene measures. Relaxing rituals to rest easy, understanding foods with positive and negative impact on sleep, creating a peaceful sleep environment, timing of exercise, using herbal sleep aids, and practicing sleep-friendly meditation were covered. To determine how much sleep is needed, the patient will assess where he falls on the spectrum, examine what lifestyle factors such as work schedules and stress are affecting the quality and quantity of sleep. In general, adults need 7-9 hours of sleep. Educated the patient regarding foods that promote sleep. These include but are not limited to cherries, bananas, toast, oatmeal, and warm milk. Educated the patient regarding foods and drinks to avoid before bedtime. These include but are not limited to aged cheese, chocolate, spicy foods, tomato-based sauces, soy, ginseng tea and processed meat. Advocated influenza vaccination annually and pneumonia vaccination in 2031. Advocated weight loss through diet and exercise. Patient's ideal body weight according to height and gender is up to 165 lbs. Encouraged patient to adjust caloric intake to maintain/achieve ideal body weight, emphasizing on fruits, vegetables, whole grains, and fat-free or low-fat products. These include lean meats, poultry, fish, beans, eggs, and nuts and foods that are low in saturated fats, trans-fats, cholesterol, salt (sodium), and glycemic index. Stressed the importance of regular exercise up to the patient's capacity limits. In this case, we recommend 20 min daily walking, 2 days a week of resistance training. Patient to monitor BP daily and bring records to PCP for further management. 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 PLMD CKD Iron deficiency B12 deficiency Plan: The following were reviewed and explained to the patient: [facility] home sleep study 08/20/23, AHI = 8, supine AHI = 11 [facility] titration sleep study 11/18/23 sleep onset = 2.5 minutes, REM onset = 67 minutes, ResMed medium AirFit F20 full face mask @ 11 cmH2O, PLMI = 46 Creatinine 11/24/23 1.29 mg% Ferritin 11/24/23 36 ng/mL B12 11/24/23 270 pg/mL Non-pharmacologic therapy options for periodic limb movement disorder include avoidance of aggravating drugs and substances, mental alerting activities, short daily hemodialysis for patients in renal failure, exercise, leg massage, stretching calf muscles, use of a weighted blanket and applied heat. Patient will cut down on caffeine intake. BUN, Vitamin E, RBC folate, Iron, TIBC, ESR, Magnesium, Hgb and Hct levels are within normal limits. He will discusss with his PCP regarding possible referral to nephrology for elevated creatinine. Patient will take FeSO4 325 mg + Vit C 500 mg daily to keep the ferritin > 75 ng/ml. Patient will take B12 1 mg daily to keep the levels > 400 pg/ml. Check ferritin and B12 one week before return. We will hold off on dopaminergic therapy for now. Educated the patient on problems and solutions associated with positive airway pressure (PAP) use. Difficulty tolerating pressure, mask leaks, intolerance of interface, nasal congestion, claustrophobic response, dry mouth, and unintentional mask removal during sleep were covered. Patient's mask leaks air. We will ensure the mask is situated properly. Patient can wear protective eye covering during sleep, and the mask can be resized. ResMed Air Sense 11 auto set unit with heated humidifier, supplies and ResMed medium AirFit F20 full face mask @ 11 cmH2O ordered. Further titration will be based on clinical response. Provided the patient with a list of local home care stores where positive airway pressure (PAP) units, accoutrement, and services are available. Home care store selection is based on patient's insurance carrier. Patient will setup an appointment with [facility] for supplies and pressure adjustments. A major predictor of success with use of PAP is follow-up with both the respiratory supplier and the treating physician. The respiratory supplier optimally will follow-up within two weeks after starting use while the treating physician optimally will follow-up within 90 days after starting therapy to assess adherence and effectiveness of treatment. The download results can show the treating physician information about adherence to treatment, residual AHI while on treatment and presence of large mask leakage. This information is especially helpful if the patient has residual sleepiness despite treatment. General information on sleep disordered breathing, evaluation of sleep disordered breathing, treatment with PAP therapy, and living with PAP therapy were covered. We discussed with the patient the impact of weight on: Sleep disordered breathing Hypertension Mixed hyperlipidemia [place] Left ankle ligament tear We discussed with the patient the benefit of PAP therapy on: Sleep disordered breathing Hypertension L[place]ETTA Educated the patient on sleep hygiene measures. Relaxing rituals to rest easy, understanding foods with positive and negative impact on sleep, creating a peaceful sleep environment, timing of exercise, using herbal sleep aids, and practicing sleep-friendly meditation were covered. To determine how much sleep is needed, the patient will assess where he falls on the spectrum, examine what lifestyle factors such as work schedules and stress are affecting the quality and quantity of sleep. In general, adults need 7-9 hours of sleep. Educated the patient regarding foods that promote sleep. These include but are not limited to cherries, bananas, toast, oatmeal, and warm milk. Educated the patient regarding foods and drinks to avoid before bedtime. These include but are not limited to aged cheese, chocolate, spicy foods, tomato-based sauces, soy, ginseng tea and processed meat. Advocated influenza vaccination annually and pneumonia vaccination in 2031. Advocated weight loss through diet and exercise. Patient's ideal body weight according to height and gender is up to 165 lbs. Encouraged patient to adjust caloric intake to maintain/achieve ideal body weight, emphasizing on fruits, vegetables, whole grains, and fat-free or low-fat products. These include lean meats, poultry, fish, beans, eggs, and nuts and foods that are low in saturated fats, trans-fats, cholesterol, salt (sodium), and glycemic index. Stressed the importance of regular exercise up to the patient's capacity limits. In this case, we recommend 20 min daily walking, 2 days a week of resistance training. Patient to monitor BP daily and bring records to PCP for further management. Follow-up: 3 months, February 2024 Not available 12/15/2023 09:59:15 03/29/2024 03/29/2024 Assessment: Early REM onset Mild OSAHS, AHI = 8 PLMD CKD Iron deficiency B12 deficiency Plan: The following were reviewed and explained to the patient: [facility] home sleep study 08/20/23, AHI = 8, supine AHI = 11 [facility] titration sleep study 11/18/23 sleep onset = 2.5 minutes, REM onset = 67 minutes, ResMed medium AirFit F20 full face mask @ 11 cmH2O, PLMI = 46 Creatinine 11/24/23 1.29 mg% Ferritin 11/24/23 36 ng/mL Ferritin 03/22/24 50 ng/mL B12 11/24/23 270 pg/mL B12 03/22/24 660 pg/mL Non-pharmacologic therapy options for periodic limb movement disorder include avoidance of aggravating drugs and substances, mental alerting activities, short daily hemodialysis for patients in renal failure, exercise, leg massage, stretching calf muscles, use of a weighted blanket and applied heat. Patient will cut down on caffeine intake. BUN, Vitamin E, RBC folate, Iron, TIBC, ESR, Magnesium, Hgb and Hct levels are within normal limits. He will discuss with his PCP regarding possible referral to nephrology for elevated creatinine. Patient will continue FeSO4 325 mg + Vit C 500 mg daily to keep the ferritin > 75 ng/ml. Patient will continue B12 1 mg but decrease from daily to twice weekly to keep the levels > 400 pg/ml. Check ferritin and B12 one week before return. We will hold off on dopaminergic therapy for now. PAP compliance downloaded and interpreted x 20 minutes. Data reviewed and explained to the patient. Average apnea/hypopnea index (AHI) is 1.3. Patient used PAP > 4 hours 70% of the time. PAP is set at 11 cmH2O. PAP will remain at 11 cmH2O. Keep ramp start at 4 cmH2O. Keep ramp duration at 20 minutes. Increase EPR from +1 to + 2 stemmer machine. Keep humidifier level on automatic mode. Keep tube temperature on automatic mode. Oxygen supplementation: none Patient is benefiting from PAP therapy. Encouraged patient to maintain PAP use more than 70% of the time. Statement of PAP use and benefits will be sent to the home care store. Educated the patient on problems and solutions associated with positive airway pressure (PAP) use. Difficulty tolerating pressure, mask leaks, intolerance of interface, nasal congestion, claustrophobic response, dry mouth, and unintentional mask removal during sleep were covered. Patient's mask leaks air. We will ensure the mask is situated properly. Patient can wear protective eye covering during sleep, and the mask can be resized. Provided the patient with a list of local home care stores where positive airway pressure (PAP) units, accoutrement, and services are available. Home care store selection is based on patient's insurance carrier. Patient will setup an appointment with [facility] for supplies and pressure adjustments. A major predictor of success with use of PAP is follow-up with both the respiratory supplier and the treating physician. The download results can show the treating physician information about adherence to treatment, residual AHI while on treatment and presence of large mask leakage. This information is especially helpful if the patient has residual sleepiness despite treatment. General information on sleep disordered breathing, evaluation of sleep disordered breathing, treatment with PAP therapy, and living with PAP therapy were covered. We discussed with the patient the impact of weight on: Sleep disordered breathing Hypertension Mixed hyperlipidemia [place] Left ankle ligament tear We discussed with the patient the benefit of PAP therapy on: Sleep disordered breathing Hypertension L[place] Educated the patient on sleep hygiene measures. Relaxing rituals to rest easy, understanding foods with positive and negative impact on sleep, creating a peaceful sleep environment, timing of exercise, using herbal sleep aids, and practicing sleep-friendly meditation were covered. To determine how much sleep is needed, the patient will assess where he falls on the spectrum, examine what lifestyle factors such as work schedules and stress are affecting the quality and quantity of sleep. In general, adults need 7-9 hours of sleep. Educated the patient regarding foods that promote sleep. These include but are not limited to cherries, bananas, toast, oatmeal, and warm milk. Educated the patient regarding foods and drinks to avoid before bedtime. These include but are not limited to aged cheese, chocolate, spicy foods, tomato-based sauces, soy, ginseng tea and processed meat. Advocated influenza vaccination annually and pneumonia vaccination in 2031. Advocated weight loss through diet and exercise. Patient's ideal body weight according to height and gender is up to 165 lbs. Encouraged patient to adjust caloric intake to maintain/achieve ideal body weight, emphasizing on fruits, vegetables, whole grains, and fat-free or low-fat products. These include lean meats, poultry, fish, beans, eggs, and nuts and foods that are low in saturated fats, trans-fats, cholesterol, salt (sodium), and glycemic index. Stressed the importance of regular exercise up to the patient's capacity limits. In this case, we recommend 20 min daily walking, 2 days a week of resistance training. Patient to monitor BP daily and bring records to PCP for further management. Follow-up: 6 months, September 2024 Not available 03/29/2024 09:27:11 09/27/2024 09/27/2024 Assessment: Early REM onset Mild OSAHS, AHI = 8 PLMD CKD Iron deficiency B12 deficiency Plan: The following were reviewed and explained to the patient: [facility] home sleep study 08/20/23, AHI = 8, supine AHI = 11 [facility] titration sleep study 11/18/23 sleep onset = 2.5 minutes, REM onset = 67 minutes, ResMed medium AirFit F20 full face mask @ 11 cmH2O, PLMI = 46 Creatinine 11/24/23 1.29 mg% Ferritin 11/24/23 36 ng/mL Ferritin 03/22/24 50 ng/mL Ferritin 09/08/24 70 ng/mL B12 11/24/23 270 pg/mL B12 03/22/24 660 pg/mL B12 09/08/24 400 pg/mL Non-pharmacologic therapy options for periodic limb movement disorder include avoidance of aggravating drugs and substances, mental alerting activities, short daily hemodialysis for patients in renal failure, exercise, leg massage, stretching calf muscles, use of a weighted blanket and applied heat. Patient will cut down on caffeine intake. BUN, Vitamin E, RBC folate, Iron, TIBC, ESR, Magnesium, Hgb and Hct levels are within normal limits. He will discuss with his PCP regarding possible referral to nephrology for elevated creatinine. Patient will continue FeSO4 325 mg + Vit C 500 mg daily to keep the ferritin > 75 ng/ml. Patient will continue B12 1 mg but increase from twice weekly to every other day to keep the levels > 400 pg/ml. Check ferritin and B12 one week before return. We will hold off on dopaminergic therapy for now. PAP compliance downloaded and interpreted x 20 minutes. Data reviewed and explained to the patient. Average apnea/hypopnea index (AHI) is 1.1. Patient used PAP > 4 hours 70% of the time. PAP is set at 11 cmH2O. PAP will remain at 11 cmH2O. Keep ramp start at 4 cmH2O. Keep ramp duration at 20 minutes. Keep EPR + 2 stemmer machine. Keep humidifier level on automatic mode. Keep tube temperature on automatic mode. Oxygen supplementation: none Patient is benefiting from PAP therapy. Encouraged patient to maintain PAP use more than 70% of the time. Statement of PAP use and benefits will be sent to the home care store. Educated the patient on problems and solutions associated with positive airway pressure (PAP) use. Difficulty tolerating pressure, mask leaks, intolerance of interface, nasal congestion, claustrophobic response, dry mouth, and unintentional mask removal during sleep were covered. Patient's mask leaks air. We will ensure the mask is situated properly. Patient can wear protective eye covering during sleep, and the mask can be resized. Provided the patient with a list of local home care stores where positive airway pressure (PAP) units, accoutrement, and services are available. Home care store selection is based on patient's insurance carrier. Patient will setup an appointment with [facility] for supplies and pressure adjustments. A major predictor of success with use of PAP is follow-up with both the respiratory supplier and the treating physician. The download results can show the treating physician information about adherence to treatment, residual AHI while on treatment and presence of large mask leakage. This information is especially helpful if the patient has residual sleepiness despite treatment. General information on sleep disordered breathing, evaluation of sleep disordered breathing, treatment with PAP therapy, and living with PAP therapy were covered. We discussed with the patient the impact of weight on: Sleep disordered breathing Hypertension Mixed hyperlipidemia [place] Left ankle ligament tear We discussed with the patient the benefit of PAP therapy on: Sleep disordered breathing Hypertension L[place]ETTA Educated the patient on sleep hygiene measures. Relaxing rituals to rest easy, understanding foods with positive and negative impact on sleep, creating a peaceful sleep environment, timing of exercise, using herbal sleep aids, and practicing sleep-friendly meditation were covered. To determine how much sleep is needed, the patient will assess where he falls on the spectrum, examine what lifestyle factors such as work schedules and stress are affecting the quality and quantity of sleep. In general, adults need 7-9 hours of sleep. Educated the patient regarding foods that promote sleep. These include but are not limited to cherries, bananas, toast, oatmeal, and warm milk. Educated the patient regarding foods and drinks to avoid before bedtime. These include but are not limited to aged cheese, chocolate, spicy foods, tomato-based sauces, soy, ginseng tea and processed meat. Advocated influenza vaccination annually and pneumonia vaccination in 2031. Advocated weight loss through diet and exercise. Patient's ideal body weight according to height and gender is up to 165 lbs. Encouraged patient to adjust caloric intake to maintain/achieve ideal body weight, emphasizing on fruits, vegetables, whole grains, and fat-free or low-fat products. These include lean meats, poultry, fish, beans, eggs, and nuts and foods that are low in saturated fats, trans-fats, cholesterol, salt (sodium), and glycemic index. Stressed the importance of regular exercise up to the patient's capacity limits. In this case, we recommend 20 min daily walking, 2 days a week of resistance training. Patient to monitor BP daily and bring records to PCP for further management. Follow-up: 6 months, March 2025 [facility] Not available 09/27/2024 08:49:07 Plan of Treatment Reminders Order Date Submit Date Provider Last Modified By Organization Details Last Modified Time Details Appointments Any 15 2024 07:30A Shima Rhoades MD Not available Not available Not available Lab vitamin B12, serum 2024 025 [facility], [address], [place], [address], 09/27/2024 08:49:35 ferritin, serum or plasma 2024 025 [facility], [address], [place], [address], 09/27/2024 08:49:35 vitamin B12, serum 2023 025 [facility], [address], [place], [address], 09/09/2024 15:43:47 ferritin, serum or plasma 2023 025 [facility], [address], [place], [address], 09/09/2024 15:43:46 vitamin B12, serum 2023 024 [facility], [address], [place], [address], 03/23/2024 06:29:17 ferritin, serum or plasma 2023 024 [facility], [address], [place], [address], 03/23/2024 06:29:16 iron + TIBC + ferritin, serum 2023 024 [facility] (Lab), [address] [place], [address], 11/24/2023 15:01:13 folate, RBC 2023 024 [facility] (Lab), [address] [place], [address], 12/10/2023 14:26:04 vitamin B12, serum [address] (Lab), [address] [place], [address], 04/06/2024 13:46:11 ESR (erythroc yte sedimenta tion rate), blood [address] (Lab), [address] [place], [address], 04/06/2024 13:46:12 hemoglobi n + hematocri t, blood 2023 024 [id number] 2 [facility] (Lab), [address] [place], [address], 04/06/2024 13:46:12 bun (blood urea nitrogen) , serum or plasma 2023 024 [id number] 2 [facility] (Lab), [address] [place], [address], 04/06/2024 13:46:12 creatinin e, serum or plasma 2023 024 [email or web address] 2 [facility] (Lab), [address] [place], [address], 04/06/2024 13:46:12 magnesium , serum or plasma 2023 024 [id number] 2 [facility] (Lab), [address] [place], [address], 04/06/2024 13:46:12 vitamin E, serum 2023 024 [id number] 2 [facility] (Lab), [address] [place], [address], 04/06/2024 13:46:13 Referral None recorded. Procedures None recorded. Surgeries None recorded. Imaging polysomno gram, titration study - no auth required 2023 024 [email or web address] 5 [facility], [address] [place], [address], 09/03/2023 09:06:18 Medication Orders cyanocoba deanna (vit B-12) 1,000 mcg tablet 2024 025 [facility]Pharmacy #3254, [address] [place], [address], 09/27/2024 08:49:39 ferrous sulfate 325 mg (65 mg iron) tablet 2024 025 [facility]/Pharmacy #3259, [address] [place] [address], [id number], 09/27/2024 08:49:39 Vitamin C 500 mg tablet 2024 025 [facility]/Pharmacy #3259, [address] [place] [address], [address], 09/27/2024 08:49:38 cyanocoba deanna (vit B-12) 1,000 mcg tablet 2023 024 [facility]/Pharmacy #3259, [address] [place] [address], [address], 03/29/2024 09:28:20 ferrous sulfate 325 mg (65 mg iron) tablet 2023 024 [facility]/Pharmacy #3259, [address] [place] [address], [id number], 03/29/2024 09:28:18 Vitamin C 500 mg tablet 2023 024 [facility]/Pharmacy #3259, [address] [place] [address], [address], 03/29/2024 09:28:19 cyanocoba deanna (vit B-12) 1,000 mcg tablet 2023 024 [facility]/Pharmacy #3259, [address] [place] [address], [address], 12/15/2023 09:44:30 ferrous sulfate 325 mg (65 mg iron) tablet 2023 024 [facility]/Pharmacy #3259, [address] [place] [address], [address], 12/15/2023 09:44:31 Vitamin C 500 mg tablet 2023 024 [facility]/Pharmacy #3259, [place], [address], 12/15/2023 09:44:31 Patient TargetsNo targets recorded. Patient InstructionsNo instructions recorded. Reason for Referral None Reported. Results Created Date Observation Date Name Description Value Unit Range Abnormal Flag Note LastModifiedBy Organization Detail LastModifiedTime 03/22/20 24 03/23/2024 JARRET TIN ferritin 50 NG/mL 38-380 normal Not Available [place] [address] [place], [address], 03/23/2024 06:29:15 03/22/20 24 03/23/2024 VITAM IN B12 vitamin B12 660 pg/mL 200-11 00 normal Not Available [address] [place], [address], 03/23/2024 06:29:17 09/09/19 25 09/09/2024 JARRET TIN ferritin 70 NG/mL 38-380 normal Not Available [address] [address] [place], [address], 09/09/2024 15:43:45 09/09/19 25 09/09/2024 VITAM IN B12 vitamin B12 400 pg/mL 200-[address] to have a [employer] gianna copy faxed has been [facility] ed. Queue d to: [phone] Not Available [address], [address], 09/09/2024 15:43:47 08/24/19 24 08/20/2023 home sleep study No observ ation record ed. BARCODE Not Available 2023 09:40:12 11/24/1911/18/2023 polys omnog alin, titra tion study No observ ation record ed. BARCODE [facility] [address] [place], [address], 11/24/2023 10:32:08 Result Notes None recorded. Problems Name Problem SNOMED Code Status Onset Date Resolution Date Notes Provider Name and Address Organization Details Recorded Time Obstructive sleep apnea syndrome 79491760 Active 2023 New Rhoades MD [address] [employer], [place], [address], [employer] 4 11:09:07 Periodic limb movement disorder 398602361 Active 2023 New Rhoades MD [address] [facility], [place], [address], [employer] 4 09:30:15 Iron deficiency 56161381 Active 2023 New Rhoades MD [address], [place], [address], [employer] 4 09:43:09 Vitamin B12 deficiency (non anemic) 12125414 Active 2023 New Rhoades MD [address] [facility], [place], [address], [employer] 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 Procedures Surgical History Date Name Laterality Status Provider Name and Address Organization Details Recorded Time appendectomy completed Debbi Avalos MA [employer] 09/27/2024 08:30:57 Imaging Results None recorded. Procedure Notes None recorded. Medical Equipment None Reported. Allergies Allergen ID Allergen Name Allergen Category Reaction Reaction Severity Criticality Documentation Date Start Date Code Code System Note Provider Name and Address Organization Details Recorded Time 02884 Substance with sulfonami de structure and antibacte rial mechanism of action (substanc e) medicatio n Not available Not available Not available 08/22/2023 30209 8003 SNOMED New Rhoades MD [address] [employer], [place], [address], [facility] [employer] 16:48:46 Medications Name Sig Start Date Stop Date Status Note LastModified by Organization Details LastModified Time Vitamin C 500 mg tablet Take 1 tablet every day by oral route. 2024 active Not Available Not Available Not Avai lable hydrocodone 5 mg-acetamin ophen 325 mg tablet TAKE 1 TABLET BY MOUTH EVERY 4 HOURS NEEDED FOR PAIN 03/29 completed Not Available Not Available Not Available lisinopril 20 mg tablet TAKE 1 TABLET BY MOUTH EVERY DAY active Not Available Not Available No t Available prednisone 20 mg tablet TAKE 2 TABLETS ONCE DAILY FOR 7 DAYS 09/27 completed Not Available Not Available Not Available cyanocobala min (vit B-12) 1,000 mcg tablet Take 1 tablet every other day by oral route. 2024 active Not Available Not Available Not Avai lable cephalexin 500 mg capsule TAKE 1 CAPSULE BY MOUTH TWICE A DAY 08/26 completed Not Available Not Available Not Available pantoprazol e 40 mg tablet,mauricio yed release TAKE 1 TABLET BY MOUTH EVERY DAY FOR 30 DAYS 03/29 completed Not Available Not Available Not Available ferrous sulfate 325 mg (65 mg iron) tablet Take 1 tablet every day by oral route. 2024 active Not Available Not Available Not Avai lable triamcinolo ne acetonide 0.1 % topical ointment APPLY TO AFFECTED AREA TWICE A DAY NEEDED 08/26 completed Not Available Not Available Not Available mupirocin 2 % topical ointment APPLY TO ARM TWICE A DAY 08/26 completed Not Available Not Available Not Available amoxicillin 875 mg-potassiu m clavulanate 125 mg tablet 08/26 completed Not Available Not Available Not Available mesalamine 1.2 gram tablet,mauricio yed release TAKE 2 TABLETS BY MOUTH DAILY WITH A MEAL FOR 90 DAYS active Not Available Not Available No t Available Vitals Date Recorded Body temperature Heart rate Respiratory rate Provider Name and Address Organization Details Last Updated DateTime 08/27/2023 97.4 [degF] 84 /min 15 /min New Rhoades MD [address], [place], [address], [place] [facility] [place] 08/27/2023 11:13:48 Date Recorded Body weight Body mass index (BMI) Body height Heart rate Oxygen saturation Oxygen saturation in Arterial blood by Pulse oximetry Systolic blood pressure Diastolic blood pressure Provider Name and Address Organization Details Last Updated DateTime 4 542912. 88 g 34.4 kg/m2 172.72 cm 84 /min 98 % 98 % 124 mm[Hg] 72 mm[Hg] Cesilia Jin CMA [place] [facility] [place] 4 10:14:30 Date Recorded Heart rate Respiratory rate Provider N palomo and Address Organization Details Last Updated DateTime 09/27/2024 73 /min 15 /min New Rhoades MD [address], [address], [place], [address], [place] [facility] [place] 09/27/2024 08:56:42 Date Recorded Body height Body mass index (BMI) Body weight Body temperature Heart rate Oxygen saturation Oxygen saturation in Arterial blood by Pulse oximetry Systolic blood pressure Diastolic blood pressure Provider Name and Address Organization Details Last Updated DateTime 5 172.72 cm 35.3 kg/m2 226455. 43 g 98.1 [degF] 73 /min 97 % 97 % 118 mm[Hg] 70 mm[Hg] Debbi Avalos MA [employer] [facility] [place] 5 08:28:29 Date Recorded Heart rate Respiratory rate Provider N palomo and Address Organization Details Last Updated DateTime 11/24/2023 84 /min 14 /min New Rhoades MD [address], [address], [place], [address], [place] [facility] [place] 11/24/2023 09:35:52 Date Recorded Body height Body mass index (BMI) Body weight Heart rate Oxygen saturation Oxygen saturation in Arterial blood by Pulse oximetry Body temperature Systolic blood pressure Diastolic blood pressure Provider Name and Address Organization Details Last Updated DateTime 4 172.72 cm 34.1 kg/m2 800936. 69 g 84 /min 98 % 98 % 98.1 [degF] 122 mm[Hg] 70 mm[Hg] Cesilia Jin CMA [employer] [facility] [place] 4 09:30:40 Date Recorded Heart rate Respiratory rate Provider N palomo and Address Organization Details Last Updated DateTime 12/15/2023 84 /min 15 /min New Rhoades MD [address] [facility], [address], [place], [address], [place] [facility] [place] 12/15/2023 09:41:22 Date Recorded Body height Body mass index (BMI) Body weight Body temperature Heart rate Oxygen saturation Oxygen saturation in Arterial blood by Pulse oximetry Systolic blood pressure Diastolic blood pressure Provider Name and Address Organization Details Last Updated DateTime 4 172.72 cm 34.7 kg/m2 871793. 06 g 98.2 [degF] 84 /min 99 % 99 % 122 mm[Hg] 72 mm[Hg] Faye Cleary MA [employer] [facility] [place] 09:12:17 Date Recorded Heart rate Respiratory rate Provider N palomo and Address Organization Details Last Updated DateTime 03/29/2024 69 /min 14 /min New Rhoades MD [address] [facility], [address], [place], [address], [place] [facility] [place] 03/29/2024 09:36:22 Date Recorded Body height Body mass index (BMI) Body weight Heart rate Oxygen saturation Oxygen saturation in Arterial blood by Pulse oximetry Body temperature Systolic blood pressure Diastolic blood pressure Provider Name and Address Organization Details Last Updated DateTime 4 172.72 cm 35.3 kg/m2 414982. 43 g 69 /min 97 % 97 % 98.4 [degF] 118 mm[Hg] 74 mm[Hg] Faye Cleary MA [employer] [facility] [place] 09:03:50 Social History Question Answer Notes LastModified by Organization Details LastModified Time Tobacco Smoking Status Former Smoker Quit 1988 AY[place]A [place], [place] [facility] [place] 08/27/2023 10:17:46 Is Blood Transfusion Acceptable In An Emergency? Yes [email or web address] Information not available 08/27/2023 What Is Your Level Of Caffeine Consumption? Moderate Coffee [email or web address] Information not available 08/27/2023 In The 14 Days Before Symptom Onset, Have You Had Close Contact With A Laboratory-bartolomei rmed COVID-19 While That Case Was Ill? No [email or web address] Information not available 08/27/2023 In The 14 Days Before Symptom Onset, Have You Had Close Contact With A Person Who Is Under Investigation For COVID-19 While That Person Was Ill? No [email or web address] Information not available 08/27/2023 What Type Of Diet Are You Following? REGULAR [email or web address] Information not available 08/27/2023 What Is The Highest Grade Or Level Of School You Have Completed Or The Highest Degree You Have Received? [id number] [email or web address] Information not available 08/27/2023 Do You Have An Electrostatic Air Filter? No Information not available 12/15/2023 How Many Days Of Moderate To Strenuous Exercise, Like A Brisk Walk, Did You Do In The Last 7 Days? 4 [email or web address] Information not available 08/27/2023 When Did You Quit Smoking? 16+yearssincelastci emir Information not available 09/27/2024 Do You Have A Humidifier? No [email or web address] Information not available 08/27/2023 Where Do You Live? SingleLevelHouse Information not available 08/27/2023 Do You Have Moisture Problems In Your Home? No Information not available 12/15/2023 What Was The Date Of Your Most Recent Tobacco Screening? 09/27/2024 Information not available 09/27/2024 How Many Children Do You Have? 4 Information not available 08/27/2023 Do You Have Any Pets? Yes 1 Dog 2 Cats [email or web address] Information not available 08/27/2023 What Is Your Relationship Status? Information not available 08/27/2023 Do You Use Your Seat Belt Or Car Seat Routinely? Yes [email or web address] Information not available 08/27/2023 Do You Have Smoke And Carbon Monoxide Detectors In Your Home? Yes [email or web address] Information not available 08/27/2023 At What Age Did You Start Smoking Tobacco? 13 Information not available 09/27/2024 Are You Passively Exposed To Smoke? No Information not available 08/27/2023 How Much Tobacco Do You Smoke? 1 PPD Information not available 09/27/2024 Do You Use Sunscreen Routinely? Yes [email or web address] Information not available 08/27/2023 Have You Recently Traveled Abroad? No [email or web address] Information not available 08/27/2023 Sex: Unknown Functional Status Question Answer Note LastModified by Organizat ion Details LastModified Time Do you use any illicit or recreational drugs? No [email or web address] Information not available 08/27/2023 Do you or have you ever used any other forms of tobacco or nicotine? Yes Information not available 09/27/2024 What is your level of alcohol consumption? Occasional Information not available 12/15/2023 Do you or have you ever used smokeless tobacco? Former smokeless tobacco user Information not available 09/27/2024 Are you currently employed? Yes Information not available 08/27/2023 Have you been exposed to chemicals or toxins? 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 Never used electronic cigarettes Information not available 09/27/2024 What is your exercise level? Moderate Information not available 08/27/2023 Mental Status Question Answer Note LastModified by Organization D etails LastModified Time Do you feel stressed (tense, restless, nervous, or anxious, or unable to sleep at night)? [id number] [email or web address] Information not available 08/27/2023 Family History Relationship Description Onset Age of this Age Resolved Age Notes LastModified by Organization Details LastModified Time Father Heart disease Not available 2023 16:51:05 Father Malignant tumor of pancreas [email or web address] Not available 06/2024 08:19:22 Father Cataract [email or web address] Not availa ble 09/27/2024 08:19:22 Paternal Grandfather Malignant neoplasm of prostate [email or web address] Not available 06/2024 08:19:22 Maternal Grandmother Dementia [email or web address] Not available 0 09/27/2024 08:19:22 Paternal Grandmother Inflammatory bowel disease [email or web address] Not available 06/2024 08:19:22 Maternal Grandfather Heart disease Not available 2023 10:58:25 Paternal Aunt Chronic obstructive pulmonary disease [email or web address] Not available 06/2024 08:19:22 Paternal Aunt Malignant neoplasm of urinary bladder [email or web address] Not available 06/2024 08:19:22 Brother Bariatric operative procedure Not available 06/2024 08:19:22 Daughter Leg length inequality [email or web address] Not available 06/2024 08:19:22 Medical History No medical history recorded. Past Encounters Encounter ID Performer Location Encounter Start Date Encounter Closed Date Diagnosis/Indication Diagnosis SNOMED-CT Code Diagnosis ICD10 Code Diagnosis Note [id number] New Rhoades MD [facility] [address] 08/27/2023 09:41:58 08/28/2023 08:48:55 Obstructive sleep apnea syndrome 28266734 G47.33 G47.36 G47.61 [id number] New Rhoades MD [place] [address] 11/24/2023 09:13:45 11/24/2023 16:20:51 Obstructive sleep apnea syndrome 16804700 G47.33 Periodic l imb movement disorder 169275350 G47.61 D50.8 E83.42 [id number] New Rhoades MD [place] [address] 12/15/2023 08:48:31 12/16/2023 08:08:35 Obstructive sleep apnea syndrome 67595348 G47.33 Iron deficiency 63244438 E61.1 Vitamin B1 2 deficiency (non anemic) 60012162 E53.8 [id number] New Rhoades MD [facility] [address] 03/29/2024 08:45:11 03/29/2024 17:27:14 Periodic limb movement disorder 888006390 G47.61 D50.8 E83.42 Obstructiv e sleep apnea syndrome 81617386 G47.33 Iron deficiency 23881316 E61.1 Vitamin B1 2 deficiency (non anemic) 40863169 E53.8 [id number] New Rhoades MD [facility] [address] [address] 09/27/2024 08:17:33 09/27/2024 09:05:37 Periodic limb movement disorder 022512263 G47.61 Obstructiv e sleep apnea syndrome 45174739 G47.33 Iron deficiency 71318792 E61.1 Vitamin B1 2 deficiency (non anemic) 37191476 E53.8 Health Concerns Section Related Observation LastModified by Organization Detai ls LastModified Time None Recorded Concern Status LastModified by Organization Details LastModified Time None Recorded Advance Directives Directive None Recorded Payers Encounter Date Sequence Insurance Name Policy Number Policy Nunez Covered Member ID Nunez Member ID Guarantor Name 08/27/2023 1 [facility] (PPO) Jered Martin [id number] MATEO Martin 11/24/2023 1 [facility] [employer] [facility] (PPO) Jered Martin [id number] OI Jered Martin 12/15/2023 1 [facility] [employer] [facility] (PPO) Jered Martin [id number] OI Jered Martin 03/29/2024 1 [facility] [employer] (PPO) Jered Martin [id number] OI Jered Martin 09/27/2024 1 [facility] [employer] (PPO) Jered Martin [id number] OI Jered Martin Notes Date Note Type Note Provider Name and Address Organization Details Recorded Time 08/27/2023 text/html Primary care/Ref erring provider: Jj Galindo MD Patient had a remote sleep study on 2007. He used CPAP until 2013. He quit due to inconvenience. During the [facility] home sleep study on 08/20/23, AHI = 8, supine AHI = 11. At home, the patient sleeps from 11:30 pm to 6 am and wakes up with an alarm. Snoring: heavy, since 1970s.Snorting: yesChoking: yesCoughing: noGasping: noGagging: noSighing: noWitnessed apnea: yesTwitching or jerking of leg(s), arm(s), body, head: yesTeeth grinding: noTeeth clenching: noSleeptalking: noSleepwalking: noSleep crying: noBedwetting: noTongue/lip/gum/cheek biting: noSleeping with open mouth: yesSleep paralysis: yesHypnagogic hallucinations: yes, feels someone in the roomHypnopompic hallucinations: noVivid dreams: noDifficulty with sleep onset: noDifficulty with sleep maintenance: yesSleep interruptions: nocturia x 1Patient wakes up with: fatigue, cognitive impairment, mobility impairmentDaytime cataplexy: noMorning hypersomnolence: yesAfternoon hypersomnolence: yesCaffeine sources in diet: coffee 2 cups per day, chocolate 1 candy bar per week Associated medical and psychiatric conditions:Congestive heart failure: noCoronary artery disease: noMyocardial infarction: noHypertension: yesStroke: noBronchial asthma: noChronic obstructive pulmonary disease: noDepression: noBipolar disorder: noAnxiety: noPanic disorder: noPosttraumatic stress disorder: noAttention deficit and hyperactivity disorder: noObsessive Compulsive disorder: noSchizophrenia: noSchizoaffective disorder: noPersonality disorder: noChronic analgesic use: noChronic sedative/hypnotic use: no EPWORTH SLEEPINESS SCALE (ESS) CHANCE OF DOZING SCORE0 = would never doze1 = slight chance of dozing2 = moderate chance of dozing3 = high chance of dozing SITUATION AND CHANCE OF DOZINGSitting and reading - 2Watching television - 1Sitting inactive in a public place (e.g. a theater or meeting) - 1As a passenger in a car for an hour without a break - 1Lying down to rest in the afternoon when circumstances permit - 2Sitting and talking to someone - 1Sitting quietly after lunch without alcohol - 3In a car, while stopped for a few minutes in the traffic - 0TOTAL SCORE 11Subjectively, patient has a slight moderate chance of dozing. New Rhoades MD [address] [place] [address], [place], [address], [facility] [place] 08/27/2023 11:14:26 11/24/2023 text/html Primary care/Ref erring provider: Jj Galindo MD During the [facility] home sleep study on 08/20/23, AHI = 8, supine AHI = 11. During the [facility] titration sleep study on 11/18/23, sleep onset = 2.5 minutes, REM onset = 67 minutes, PLMI = 46. The patient uses a ResMed AirSense 11 autoset unit with heated humidification. The patient does not need the ramp to start low and go up slowly on the pressure. There is no xerostomia in a.m. There is no hose/mask condensation with water. The patient wears a [employer]Med medium AirFit F20 full face mask without chin strap. There is no claustrophobia, no nostril/nose bridge irritation, no facial rash, no facial numbness, no nosebleeding. The patient feels more refreshed upon waking and daytime alertness is improved. Energy levels are sustained for the remainder of the day. At home, the patient sleeps from 11:30 pm to 6 am and wakes up with an alarm. Snoring: heavy, since 1970s.Snorting: yesChoking: yesCoughing: noGasping: noGagging: noSighing: noWitnessed apnea: yesTwitching or jerking of leg(s), arm(s), body, head: yesTeeth grinding: noTeeth clenching: noSleeptalking: noSleepwalking: noSleep crying: noBedwetting: noTongue/lip/gum/cheek biting: noSleeping with open mouth: yesSleep paralysis: yesHypnagogic hallucinations: yes, feels someone in the roomHypnopompic hallucinations: noVivid dreams: noDifficulty with sleep onset: noDifficulty with sleep maintenance: yesSleep interruptions: nocturia x 1Patient wakes up with: fatigue, cognitive impairment, mobility impairmentDaytime cataplexy: noMorning hypersomnolence: yesAfternoon hypersomnolence: yesCaffeine sources in diet: coffee 2 cups per day, chocolate 1 candy bar per week Associated medical and psychiatric conditions:Congestive heart failure: noCoronary artery disease: noMyocardial infarction: noHypertension: yesStroke: noBronchial asthma: noChronic obstructive pulmonary disease: noDepression: noBipolar disorder: noAnxiety: noPanic disorder: noPosttraumatic stress disorder: noAttention deficit and hyperactivity disorder: noObsessive Compulsive disorder: noSchizophrenia: noSchizoaffective disorder: noPersonality disorder: noChronic analgesic use: noChronic sedative/hypnotic use: no EPWORTH SLEEPINESS SCALE (ESS) CHANCE OF DOZING SCORE0 = would never doze1 = slight chance of dozing2 = moderate chance of dozing3 = high chance of dozing SITUATION AND CHANCE OF DOZINGSitting and reading - 2Watching television - 1Sitting inactive in a public place (e.g. a theater or meeting) - 1As a passenger in a car for an hour without a break - 1Lying down to rest in the afternoon when circumstances permit - 2Sitting and talking to someone - 1Sitting quietly after lunch without alcohol - 3In a car, while stopped for a few minutes in the traffic - 0TOTAL SCORE 11Subjectively, patient has a slight moderate chance of dozing. New Rhoades MD [address] [place] [address], [address], [facility] [employer] 11/24/2023 09:43:04 12/15/2023 text/html Primary care/Ref erring provider: Jj Galindo MD During the [facility] home sleep study on 08/20/23, AHI = 8, supine AHI = 11. During the [facility] titration sleep study on 11/18/23, sleep onset = 2.5 minutes, REM onset = 67 minutes. PLMI = 46 and he is here to go over his lab workup. The patient uses a ResMed AirSense 11 autoset unit with heated humidification. The patient does not need the ramp to start low and go up slowly on the pressure. There is no xerostomia in a.m. There is no hose/mask condensation with water. The patient wears a ResMed medium AirFit F20 full face mask without chin strap. There is no claustrophobia, no nostril/nose bridge irritation, no facial rash, no facial numbness, no nosebleeding. The patient feels more refreshed upon waking and daytime alertness is improved. Energy levels are sustained for the remainder of the day. At home, the patient sleeps from 11:30 pm to 6 am and wakes up with an alarm. Snoring: heavy, since 1970s.Snorting: yesChoking: yesCoughing: noGasping: noGagging: noSighing: noWitnessed apnea: yesTwitching or jerking of leg(s), arm(s), body, head: yesTeeth grinding: noTeeth clenching: noSleeptalking: noSleepwalking: noSleep crying: noBedwetting: noTongue/lip/gum/cheek biting: noSleeping with open mouth: yesSleep paralysis: yesHypnagogic hallucinations: yes, feels someone in the roomHypnopompic hallucinations: noVivid dreams: noDifficulty with sleep onset: noDifficulty with sleep maintenance: yesSleep interruptions: nocturia x 1Patient wakes up with: fatigue, cognitive impairment, mobility impairmentDaytime cataplexy: noMorning hypersomnolence: yesAfternoon hypersomnolence: yesCaffeine sources in diet: coffee 2 cups per day, chocolate 1 candy bar per week Associated medical and psychiatric conditions:Congestive heart failure: noCoronary artery disease: noMyocardial infarction: noHypertension: yesStroke: noBronchial asthma: noChronic obstructive pulmonary disease: noDepression: noBipolar disorder: noAnxiety: noPanic disorder: noPosttraumatic stress disorder: noAttention deficit and hyperactivity disorder: noObsessive Compulsive disorder: noSchizophrenia: noSchizoaffective disorder: noPersonality disorder: noChronic analgesic use: noChronic sedative/hypnotic use: no EPWORTH SLEEPINESS SCALE (ESS) CHANCE OF DOZING SCORE0 = would never doze1 = slight chance of dozing2 = moderate chance of dozing3 = high chance of dozing SITUATION AND CHANCE OF DOZINGSitting and reading - 2Watching television - 2Sitting inactive in a public place (e.g. a theater or meeting) - 1As a passenger in a car for an hour without a break - 1Lying down to rest in the afternoon when circumstances permit - 1Sitting and talking to someone - 1Sitting quietly after lunch without alcohol - 3In a car, while stopped for a few minutes in the traffic - 0TOTAL SCORE 11Subjectively, patient has a moderate chance of dozing. New Rhoadse MD [address] [place] [address], [facility] [address], [place], [address], [place] [facility] [employer] [facility] 12/15/2023 09:59:23 03/29/2024 text/html Primary care/Ref erring provider: Jj Galindo MD During the [facility] home sleep study on 08/20/23, AHI = 8, supine AHI = 11. During the [facility] titration sleep study on 11/18/23, sleep onset = 2.5 minutes, REM onset = 67 minutes. PLMI = 46 and he is on B12 and iron supplements. At home since 12/29/23, the patient uses a ResMed AirSense 11 autoset unit with heated humidification. The patient does not need the ramp to start low and go up slowly on the pressure. There is no xerostomia in a.m. There is no hose/mask condensation with water. The patient wears a ResMed medium AirFit F20 full face mask without chin strap. There is no claustrophobia, no nostril/nose bridge irritation, no facial rash, no facial numbness, no nosebleeding. The patient feels more refreshed upon waking and daytime alertness is improved. Energy levels are sustained for the remainder of the day. At home, the patient sleeps from 11:30 pm to 6 am and wakes up with an alarm. Snoring: heavy, since 1970s.Snorting: yesChoking: yesCoughing: noGasping: noGagging: noSighing: noWitnessed apnea: yesTwitching or jerking of leg(s), arm(s), body, head: yesTeeth grinding: noTeeth clenching: noSleeptalking: noSleepwalking: noSleep crying: noBedwetting: noTongue/lip/gum/cheek biting: noSleeping with open mouth: yesSleep paralysis: yesHypnagogic hallucinations: yes, feels someone in the roomHypnopompic hallucinations: noVivid dreams: noDifficulty with sleep onset: noDifficulty with sleep maintenance: yesSleep interruptions: nocturia x 1Patient wakes up with: fatigue, cognitive impairment, mobility impairmentDaytime cataplexy: noMorning hypersomnolence: yesAfternoon hypersomnolence: yesCaffeine sources in diet: coffee 2 cups per day, chocolate 1 candy bar per week Associated medical and psychiatric conditions:Congestive heart failure: noCoronary artery disease: noMyocardial infarction: noHypertension: yesStroke: noBronchial asthma: noChronic obstructive pulmonary disease: noDepression: noBipolar disorder: noAnxiety: noPanic disorder: noPosttraumatic stress disorder: noAttention deficit and hyperactivity disorder: noObsessive Compulsive disorder: noSchizophrenia: noSchizoaffective disorder: noPersonality disorder: noChronic analgesic use: noChronic sedative/hypnotic use: no EPWORTH SLEEPINESS SCALE (ESS) CHANCE OF DOZING SCORE0 = would never doze1 = slight chance of dozing2 = moderate chance of dozing3 = high chance of dozing SITUATION AND CHANCE OF DOZINGSitting and reading - 2Watching television - 1Sitting inactive in a public place (e.g. a theater or meeting) - 1As a passenger in a car for an hour without a break - 1Lying down to rest in the afternoon when circumstances permit - 2Sitting and talking to someone - 0Sitting quietly after lunch without alcohol - 3In a car, while stopped for a few minutes in the traffic - 0TOTAL SCORE 10Subjectively, patient has a moderate chance of dozing. New Rhoades MD [address] [place] [address], [address], [place] [facility] 03/29/2024 09:36:31 09/27/2024 text/html Primary care/Ref erring provider: Jj Galindo MD CC: The CPAP is no longer blowing my mouth open. During the [facility] home sleep study on 08/20/23, AHI = 8, supine AHI = 11. During the [facility] titration sleep study on 11/18/23, sleep onset = 2.5 minutes, REM onset = 67 minutes. PLMI = 46 and he is on B12 and iron supplements. At home since 03/29/24, the patient uses a ResMed AirSense 11 autoset unit with heated humidification. The patient does not need the ramp to start low and go up slowly on the pressure. There is no xerostomia in a.m. There is no hose/mask condensation with water. The patient wears a ResMed medium AirFit F20 full face mask without chin strap. There is no claustrophobia, no nostril/nose bridge irritation, no facial rash, no facial numbness, no nosebleeding. The patient feels more refreshed upon waking and daytime alertness is improved. Energy levels are sustained for the remainder of the day. At home, the patient sleeps from 11:30 pm to 6 am and wakes up with an alarm. Snoring: heavy, since 1970s.Snorting: yesChoking: yesCoughing: noGasping: noGagging: noSighing: noWitnessed apnea: yesTwitching or jerking of leg(s), arm(s), body, head: yesTeeth grinding: noTeeth clenching: noSleeptalking: noSleepwalking: noSleep crying: noBedwetting: noTongue/lip/gum/cheek biting: noSleeping with open mouth: yesSleep paralysis: yesHypnagogic hallucinations: yes, feels someone in the roomHypnopompic hallucinations: noVivid dreams: noDifficulty with sleep onset: noDifficulty with sleep maintenance: yesSleep interruptions: nocturia x 1Patient wakes up with: fatigue, cognitive impairment, mobility impairmentDaytime cataplexy: noMorning hypersomnolence: yesAfternoon hypersomnolence: yesCaffeine sources in diet: coffee 2 cups per day, chocolate 1 candy bar per week Associated medical and psychiatric conditions:Congestive heart failure: noCoronary artery disease: noMyocardial infarction: noHypertension: yesStroke: noBronchial asthma: noChronic obstructive pulmonary disease: noDepression: noBipolar disorder: noAnxiety: noPanic disorder: noPosttraumatic stress disorder: noAttention deficit and hyperactivity disorder: noObsessive Compulsive disorder: noSchizophrenia: noSchizoaffective disorder: noPersonality disorder: noChronic analgesic use: noChronic sedative/hypnotic use: no EPWORTH SLEEPINESS SCALE (ESS) CHANCE OF DOZING SCORE0 = would never doze1 = slight chance of dozing2 = moderate chance of dozing3 = high chance of dozing SITUATION AND CHANCE OF DOZINGSitting and reading - 2Watching television - 1Sitting inactive in a public place (e.g. a theater or meeting) - 1As a passenger in a car for an hour without a break - 0Lying down to rest in the afternoon when circumstances permit - 1Sitting and talking to someone - 0Sitting quietly after lunch without alcohol - 2In a car, while stopped for a few minutes in the traffic - 0TOTAL SCORE 7Subjectively, patient has a slight chance of dozing. New Rhoades MD [address] [place] [address], [place], [address], [place] [facility] 09/27/2024 08:57:49
--- OUTSIDE RECORDS SUMMARY | 2024-09-28 07:09 | XMS_ITS | Continuity of Care Document ---
Author Organization ID - [facility], [facility] Pulmon[facility] [place] Address [facility] [address] Assessment Encounter Date Assessment Date Assessment LastModified by Organization Details LastModified Time 09/27/2024 09/27/2024 Assessment: Early REM onset Mild OSAHS, AHI = 8 PLMD CKD Iron deficiency B12 deficiency Plan: The following were reviewed and explained to the patient: [facility] home sleep study 08/20/23, AHI = 8, supine AHI = 11 [facility] titration sleep study 11/18/23 sleep [...] at 20 minutes. 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 Keep humidifier level on automatic mode. Keep [...] will setup an appointment with [facility] for supplies and pressure adjustments. A major [...] further management. Follow-up: 6 months, March 2025 [facility] Not available 09/27/2024 08:49:07 Plan of Treatment Reminders Order Date Submit Date Provider Last Modified By Organization Details Last Modified Time Details Appointments Any 15 2024 07:30A Shima Rhoades MD Not available Not available Not available Lab vitamin B12, serum 2024 025 [facility], [address], [place], [address], 09/27/2024 08:49:35 ferritin, serum or plasma 2024 025 [facility], [address], [place], [address], 09/27/2024 08:49:35 Referral None recorded. Procedures None recorded. Surgeries None recorded. Imaging None recorded. Medication Orders cyanocoba deanna (vit B-12) 1,000 mcg tablet 2024 025 [id number], [address] [place], [address], 09/27/2024 08:49:39 ferrous sulfate 325 mg (65 mg iron) tablet 2024 025 [id number], [address] [place], [address], 09/27/2024 08:49:39 Vitamin C 500 mg tablet 2024 025 [id number], [address] [place], [address], 09/27/2024 08:49:38 Patient TargetsNo targets recorded. Patient InstructionsNo instructions recorded. Reason for Referral None Reported. Problems Name Problem SNOMED Code Status Onset Date Resolution Date Notes Provider Name and Address Organization Details Recorded Time Obstructive sleep apnea syndrome 84295657 Active 2023 New Rhoades MD [address], [place], [address], [employer] 4 11:09:07 Periodic limb movement disorder 626479034 Active 2023 New Rhoades MD [address], [address], [place], [address], [employer] 4 09:30:15 Iron deficiency 78438491 Active 2023 New Rhoades MD [address], [place], [address], [employer] 4 09:43:09 Vitamin B12 deficiency (non anemic) 63042024 Active 2023 New Rhoades MD [address], [place], [address], [employer] 4 09:43:22 Notes:Medical History: Rhini tis 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 Procedures Surgical History Date Name Laterality Status Provider Name and Address Organization Details Recorded Time appendectomy completed Debbi Avalos MA [employer] 09/27/2024 08:30:57 Imaging Results None recorded. Procedure Notes None recorded. Medical Equipment None Reported. Allergies Allergen ID Allergen Name Allergen Category Reaction Reaction Severity Criticality Documentation Date Start Date Code Code System Note Provider Name and Address Organization Details Recorded Time 86835 Substance with sulfonami de structure and antibacte rial mechanism of action (substanc e) medicatio n Not available Not available Not available 08/22/2023 08103 8003 SNOMED New Rhoades MD [address] [facility], [facility] [address], [place], [address], [employer] 16:48:46 Medications Name Sig Start Date Stop [...] Available No t Available Vitals Date Recorded Heart rate Respiratory rate Provider N palomo and Address Organization Details Last Updated DateTime 09/27/2024 73 /min 15 /min New Rhoades MD [address] [facility], [facility] [address], [place], [address], [employer] 09/27/2024 08:56:42 Date Recorded Body height Body mass index (BMI) Body weight Body temperature Heart rate Oxygen saturation Oxygen saturation in Arterial blood by Pulse oximetry Systolic blood pressure Diastolic blood pressure Provider Name and Address Organization Details Last Updated DateTime 172.72 cm 35.3 kg/m2 910204. 43 g 98.1 [degF] 73 /min 97 % 97 % 118 mm[Hg] 70 mm[Hg] Debbi Avalos MA [employer] 08:28:29 Social History Question Answer Notes LastModified by Organization Details LastModified Time Tobacco Smoking Status Former Smoker Quit 1988 AYALA Pickering, [employer] 08/27/2023 10:17:46 Is Blood Transfusion Acceptable In An Emergency? Yes [email or web address] Information not available 08/27/2023 What Is Your Level Of Caffeine Consumption? Moderate Coffee [email or web address] Information not available 08/27/2023 In The 14 Days Before Symptom Onset, Have You Had Close Contact With A Laboratory-confi rmed COVID-19 While That Case Was Ill? No [email or web address] Information not available 08/27/2023 In The 14 Days Before Symptom Onset, Have You Had Close Contact With A Person Who Is Under Investigation For COVID-19 While That Person Was Ill? No [email or web address] Information not available 08/27/2023 What Type Of Diet Are You Following? REGULAR [email or web address] Information not available 08/27/2023 What Is The Highest Grade Or Level Of School You Have Completed Or The Highest Degree You Have Received? SH22993-7 [email or web address] Information not available 08/27/2023 Do You Have An Electrostatic Air Filter? No Information not available 12/15/2023 How Many Days Of Moderate To Strenuous Exercise, Like A Brisk Walk, Did You Do In The Last 7 Days? 4 [email or web address] Information not available 08/27/2023 When Did You Quit Smoking? 16+yearssincelastci emir Information not available 09/27/2024 Do You Have A Humidifier? No [email or web address] Information not available 08/27/2023 Where Do You Live? SingleLevelHouse [email or web address] Information not available 08/27/2023 Do You Have Moisture Problems In Your Home? No Information not available 12/15/2023 What Was The Date Of Your Most Recent Tobacco Screening? 09/27/2024 Information not available 09/27/2024 How Many Children Do You Have? 4 [email or web address] Information not available 08/27/2023 Do You Have Any Pets? Yes 1 Dog 2 Cats Information not available 08/27/2023 What Is Your Relationship Status? [email or web address] Information not available 08/27/2023 Do You Use Your Seat Belt Or Car Seat Routinely? Yes Information not available 08/27/2023 Do You Have Smoke And Carbon Monoxide Detectors In Your Home? Yes [email or web address] Information not available 08/27/2023 At What Age Did You Start Smoking Tobacco? 13 Information not available 09/27/2024 Are You Passively Exposed To Smoke? No [email or web address] Information not available 08/27/2023 How Much Tobacco Do You Smoke? 1 PPD Information not available 09/27/2024 Do You Use Sunscreen Routinely? Yes [email or web address] Information not available 08/27/2023 Have You Recently Traveled Abroad? No [email or web address] Information not available 08/27/2023 Sex: Unknown Functional Status Question Answer Note LastModified by Organizat ion Details LastModified Time Do you use any illicit or recreational drugs? No [email or web address] Information not available 08/27/2023 Do you or have you ever used any other forms of tobacco or nicotine? Yes Information not available 09/27/2024 What is your level of alcohol consumption? Occasional Information not available 12/15/2023 Do you or have you ever used smokeless tobacco? Former smokeless tobacco user Information not available 09/27/2024 Are you currently employed? Yes [email or web address] Information not available 08/27/2023 Have you been exposed to chemicals or toxins? 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 Never used electronic cigarettes Information not available 09/27/2024 What is your exercise level? Moderate [email or web address] Information not available 08/27/2023 Mental Status Question Answer Note LastModified by Organization D etails LastModified Time Do you feel stressed (tense, restless, nervous, or anxious, or unable to sleep at night)? [id number] [email or web address] Information not available 08/27/2023 Family History Relationship Description Onset Age of this Age Resolved Age Notes LastModified by Organization Details LastModified Time Father Heart disease Not available 2023 16:51:05 Father Malignant tumor of pancreas [email or web address] Not available 06/2024 08:19:22 Father Cataract [email or web address] Not availa ble 09/27/2024 08:19:22 Paternal Grandfather Malignant neoplasm of prostate [email or web address] Not available 06/2024 08:19:22 Maternal Grandmother Dementia Not available 0 09/27/2024 08:19:22 Paternal Grandmother Inflammatory bowel disease [email or web address] Not available 06/2024 08:19:22 Maternal Grandfather Heart disease Not available 2023 10:58:25 Paternal Aunt Chronic obstructive pulmonary disease [email or web address] Not available 06/2024 08:19:22 Paternal Aunt Malignant neoplasm of urinary bladder [email or web address] Not available 06/2024 08:19:22 Brother Bariatric operative procedure [email or web address] Not available 06/2024 08:19:22 Daughter Leg length inequality [email or web address] Not available 06/2024 08:19:22 Medical History No medical history recorded. Past Encounters Encounter ID Performer Location Encounter Start Date Encounter Closed Date Diagnosis/Indication Diagnosis SNOMED-CT Code Diagnosis ICD10 Code Diagnosis Note [id number] New Rhoades MD [facility] [address] [address] 09/27/2024 08:17:33 09/27/2024 09:05:37 Periodic limb movement disorder 782904681 G47.61 Obstructiv e sleep apnea syndrome 84048370 G47.33 Iron deficiency 35709992 E61.1 Vitamin B1 2 deficiency (non anemic) 78938734 E53.8 Health Concerns Section Related Observation LastModified by Organization Detai ls LastModified Time None Recorded Concern Status LastModified by Organization Details LastModified Time None Recorded Payers Encounter Date Sequence Insurance Name Policy Number Policy Nunez Covered Member ID Nunez Member ID Guarantor Name 09/27/2024 1 [facility] [employer] [facility] (PPO) Jered Martin [id number] OI Jered Martin Notes Date Note Type Note Provider Name and Address Organization Details Recorded Time 09/27/2024 text/html Primary care/Ref erring provider: Jj Galindo MD CC: The CPAP is no longer blowing my mouth open. During the [facility] home sleep study on 08/20/23, AHI = 8, supine AHI = 11. During the [facility] titration sleep study on 11/18/23, [...] slight chance of dozing. New Rhoades MD [address] [facility], [facility] [address], [place], [address], [place] [facility] 09/27/2024 08:57:49
--- OUTSIDE RECORDS SUMMARY | 2024-09-28 07:09 | XMS_ITS ---
Author Organization Unknown Medications Medication Instructions Effective Dates (start - stop) Status acetaminophen 325 MG / hydrocodone bitartrate 5 MG Oral Tablet - Completed lisinopril 20 MG Oral Tablet [id number] 0:00:00Z - Completed Patient Care team information Name Category Status Period Participants - - Proposed period not known -
--- OUTSIDE RECORDS SUMMARY | 2024-09-28 07:10 | XMS_ITS | Encounter Summary ---
Author Organization 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 Name Role Phone Unavailable Primary Care Provider Unavailabl e Encounter Details Date Type Department Care Team (Late st Contact Info) Description 12/30/2023 Lab Requisition [facility] - DermPath Lab [address] [facility] [place] [id number] Rosalba Pereira DO [address] [facility] [address] [place] [address] Social History Tobacco Use Types Packs/Day Years Used Date Smoking Tobacco: Never Assessed Sex and Gender Information Value Date Recorded Sex Assigned at Not on file 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 Gender Identity Not on file Sexual Orientation Not on file documented as of this encounter Plan of Treatment Not on file documented as of this encounter Procedures Procedure Name Priority Date/Time Associated Diagnosis Comments DERMATOPATHOLOGY Routine 12/30/2023 8:19 AM CDT documented in this encounter Results * DERMATOPATHOLOGY (12/30/2023 8:19 AM CDT) Case Report Dermatopathology Report Case: [id number] Authorizing Provider: Rosalba Pereira DO Collected: 12/30/2023 08:19 AM Ordering Location: [facility] Physician [facility] - Received: 12/31/2023 07:38 AM DermPath Lab Pathologist: Alana Chen MD Specimen: Skin, right ac fossae 4 3:51 PM CDT DERMATOPATHOLOGY LABORATORY Final Diagnosis Specimen A. 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 The specimen consists of a punch biopsy measuring 56y73v0 mm. Jar 0. 4 3:51 PM CDT DERMATOPATHOLOGY LABORATORY Microscopic Description Specimen A. SKIN, right ac fossae: Sections show a zone of fibrosing granulation tissue in the dermis. There are typical adipocytes with minimal fibrous trabeculae. 4 3:51 PM CDT DERMATOPATHOLOGY LABORATORY Disclaimer An external and internal positive and negative controls are appropriate for the histochemical, immunohistochemical and immunofluorescence stain(s) in this case (if any), except where stated explicitly. The performance characteristics of the stain(s) cited in this report were developed and its performance characteristic determined by the Dermatopathology Laboratory at [facility], directed by Dr. Saundra Morales. These tests need not be, and therefore are not, approved by the [place] Food and Drug Administration. The tests are used for clinical purposes. Billing Codes Specimen Charges Stain Charges 94027 1 4 3:51 PM CDT DERMATOPATHOLOGY LABORATORY Embedded Images 4 3:51 PM CDT DERMATOPATHOLOGY LABORATORY Pathology/Cytolo gy TISSUE SPECIMEN FROM SKIN / Unknown 12/30/2023 8:19 AM CDT 12/31/2023 7:38 AM CDT us Rosalba Pereira DO LAB - PATHOLOGY/CYTOLOGY ORDERABLES Final Result DERMATOPATHOLOGY LABORATORY [facility] - Department of Dermatology [address] [phone] documented in this encounter Visit Diagnoses Not on filedocumented in this encounter
--- OUTSIDE RECORDS SUMMARY | 2024-09-28 07:10 | XMS_ITS | Clinical Summary ---
Author Organization [facility] Address [address] [facility] [address] [place] [address] Phone Care Team Providers Care Afternoon Nanny Name Role Phone Jj Galindo MD Primary Care Provider [phone] Allergies Active Allergy Reactions Criticality Noted Date Comments Sulfa (Sulfonamide Antibiotics) Medications lisinopriL (PRINIVIL,ZESTRI L) 20 mg tablet Take 1 tablet (20 mg total) by mouth daily 04/22/2024 Active aspirin (ASPIR-81 ORAL) 07/15/2023 Act adelina mesalamine (LIALDA) 1.2 gram EC tablet 07/10/2024 Acti ve Active Problems No known active problems Encounters Date Type Department Care Team Description 07/11/2024 12:30 PM CDT Office Visit [facility] [address] [place] [phone] Haritha Morton NP Impacted cerumen of right ear (Primary Dx); Hearing loss of left ear, unspecified hearing loss type from Last 3 Months Social History Tobacco Use Types Packs/Day Years Used Date Smoking Tobacco: Never Assessed Sex and Gender Information Value Date Recorded Sex Assigned at Not on file 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 Gender Identity Not on file Sexual Orientation Not on file Obstetrics History Last Filed Vital Signs Vital Sign Reading Time Taken Comments Blood Pressure 122/84 07/11/2024 12:30 PM CDT Pulse 68 07/11/2024 12:30 PM CDT Temperature 36.7 C (98.1 F) 07/11/2024 12:30 PM CDT Respiratory Rate 16 07/11/2024 12:30 PM CDT Oxygen Saturation 99% 07/11/2024 12:30 PM CDT Inhaled Oxygen Concentration - - Weight 99.8 kg (220 lb) 07/11/2024 12:30 PM CDT Height 172.7 cm (5' 8) 07/11/2024 12:30 PM CDT Body Mass Index 33.45 07/11/2024 12:30 PM CDT Plan of Treatment Health Maintenance Due Date Last Done Comments Colon Cancer Screening-Colonoscopy 1966 Depression Screening 1966 Hepatitis C Screening 1966 Prostate Cancer Screening-PSA 1966 DTaP/Tdap/Td Vaccine (1 - Tdap) 1977 Hepatitis B Screening 1984 Regular Well Visit/Exam 18-64 1984 Zoster Vaccine (2 of 2) 03/03/2020 01/07/2020 Covid-19 Vaccine Completed 03/04/2024, , 02/14/2022, Additional history exists Influenza Vaccine Completed 03/04/2024, , 02/14/2022, Additional history exists Pneumococcal vaccine <65 Aged Out No longer eligible based on patient's age to complete this topic Procedures Procedure Name Priority Date/Time Associated Diagnosis Comments OH REMOVAL IMPACTED CERUMEN IRRIGATION/LVG UNILAT Routine 07/11/2024 12:30 PM CDT Impacted cerumen of right ear from Last 3 Months Results * OH REMOVAL IMPACTED CERUMEN IRRIGATION/LVG UNILAT (07/11/2024 12:30 PM CDT) Narrative Haritha Morton NP - 07/11/2024 12:30 PM CDT Haritha Morton NP 07/11/2024 1:08 PM Ear Cerumen Removal Performed by: Haritha Morton NP Authorized by: Haritha Morton NP Consent Given by: Patient Verbal consent obtained: Yes Risks, alternatives, and patient questions discussed: Yes Preparation: Patient was prepped using a clean technique Location: R ear R ear cerumen impacted?: Yes R ear method of removal: Irrigation R ear magnification: Otoscope Hearing quality: Normal Patient tolerance: Patient tolerated the procedure well with no immediate complications us Haritha Morton FLIGHT SUPERINTENDENT IN CLINIC/BEDSIDE ORDERABLES F inal Result from Last 3 Months Insurance [facility] [id number] Care Teams Afternoon Nanny Relationship Specialty Start Date End Date Jj Galindo MD [address] [place] [address] PCP - General Family Medicine 07/11/24
--- OUTSIDE RECORDS SUMMARY | 2024-09-28 07:10 | XMS_ITS | Patient Health Record ---
Author Organization [employer] Address [address] [facility] [address] [place] [address] Care Team Providers Care Trailer Body Assembler Name Role Phone Jj Galindo MD Primary Care Provider UnavailMathew Cheatham Unavailable [phone] Kassi Medrano Unavailable [phone] Allergies Allergen (clinical drug ingredient) Drug/Non Drug Allergy documented on EMR Reaction Allergy Type Onset Date Status Substance with sulfonamide structure and antibacterial mechanism of action (substance) Sulfa Antibiotics Other Drug Allergy active Results Component Value Reference Range Notes Pathology Report Reviewed date:03/22/2024 03:31:59 PM Interpretation: Performing Lab: Notes/Report: DIAGNOSES A. Sigmoid Colon , Biopsy: -Focal active colitis (see comment). -No evidence of lymphocytic and collagenous colitis. -No granulomas seen. -Negative for dysplasia or malignancy. B. Rectum , Biopsy: -Colonic mucosa with no diagnostic abnormality. -No evidence of chronic or active colitis, including lymphocytic and collagenous colitis. -No granulomas seen. -Negative for dysplasia or malignancy. -Trichrome stain is unremarkable. COMMENTS A. A. A. The activity is minimal. The differential diagnosis of focal active colitis includes bowel preparation effect, trauma/prolapse, acute self-limited colitis, infection, ischemia, colitis associated with NSAIDs, and patient's known ulcerative colitis. There are no viral inclusions. CLINICAL HISTORY High risk colon cancer surveillance due to ulcerative left sided colitis of 8 or more years duration. Localized mild inflammation was found in the rectosigmoid colon secondary to proctosigmoid colitis. GROSSING DESCRIPTION A. The specimen is received in a Formalin-filled container labeled with the patient's name and designated Sigmoid Colon It contains multiple fragments of amezcua tissue that measure from 1x1x1 to 2x1x1 mm. The specimen was entirely submitted into a single cassette for processing. B. The specimen is received in a Formalin-filled container labeled with the patient's name and designated Rectum It contains 2 fragments of amezcua tissue that measure 2x1x1 and 4x1x1 mm. The specimen was entirely submitted into a single cassette for processing. MICROSCOPIC DESCRIPTION Complete 100 microscopic examination is performed. The findings are included in the diagnosis rendered. Specimens A and B were evaluated with H&E stain. Textual Pathology Report SEE NOTES Reason For Referral Referral Organization [facility] Referring Provider First Name Mathew Referring Provider Last Name Daniella Referring Provider [facility] Referred Organization [facility] Referred Provider Mathew Brewer Referred Address [address],[place], [place],[address], Referred Provider Specialty Gastroentero logy Referral Priority Routine Referral Organization [facility], [facility] Referring Provider First Name Mathew Referring Provider Last Name Daniella Referring Provider [facility] Referred Organization [facility] Referred Provider Mathew Brewer Referred Address [address],[place], [place],[address], Referred Provider Specialty Gastroentero logy Referral Priority Routine Medications Medication SIG (Take, Route, Frequency, Duration) Notes Start Date End Date Status Mesalamine 1.2 GM 2 tablets with a meal Orally Once a day for 90 days K51.90 Active Pantoprazole Sodium 40 MG 1 tablet Orally Once a day for 90 days Active OTC/Vitamins ASA, Vit D, Vit C, Vit B12, Marizol Extract, iron Active Lisinopril Active Suflave 178.7 GM ML Orally twice a day, Follow Physician Instructions. for 1 days 01/22/2024 Active Immunizations Vaccine Route Administration Date Status Comme nts Influenza Vaccination Unknown 01/24/2022 Refused Pneumococcal conjugate PCV 13 Unknown 01/24/2022 Refuse d Social History Tobacco Use: Social History Observation Description Date Details (start date - stop date) Former Smoker NA - NA Tobacco Use/Smoking Question Answer Notes Are you a former smoker How long has it been since you last smoked? > 10 years Section Notes: , 4 children, Attorne y , 4 children, Attorne y Problems Problem Type SNOMED Code ICD Code Onset Dates Problem Status W/U Status Risk Notes Problem Disorder of intestine (85084455) Other specified diseases of intestine (K63.89) Active confirmed Problem Hematochezia (K92.1) Active confirmed Problem 90274374 Ulcerative colitis (K51.90) Active confirmed Problem 73677117 Hemorrhoids (K64.9) Active confirmed He developed what he believes to be a hemorrhoid 2 weeks ago. He described having a perianal lump with itching and significant amount of bright red blood. He has been applying hydrocortisone cream, which has given him some relief. He was noted to have a hemorrhoid on exam today. Problem Diverticulosis of colon (531715494) Diverticulosis of colon (K57.30) Active confirmed Asymptomatic at this time. Negative physical exam findings today. Problem 758724734 Chronic GERD (K21.9) Active confirmed Problem Ulcerative proctitis (94937865897864) Ulcerative proctitis (K51.20) Active confirmed Based on his recollection, it was diagnosed since 2006. He has had multiple colonoscopy in the past. Intermittently he had been using mesalamine orally. He does report that mesalamine enemas work best he has a flare. Currently he may be in remission, although his last examination did reveal that his disease had gone above the rectum by his report. 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 His more recent colonoscopy in February 2021 showed a normal rectum, but there was mild localized inflammation in the proximal transverse colon, suggestive of Crohn's. He was advised to repeat exam in 3 years. In July of 2020 he was started on oral Mesalamine as he has never been in symptomatic remission and was not currently on a medication regimen. He was only on regimen for 30 days and did not continue as he states his refills ran out. Currently he will have 3 bowel movements daily on average without abdominal cramping but will have mucous and intermittent blood in stools occurring 3 times a week. He denies joint pains, skin rashes, fevers, or weight loss. Problem 6796596 Crohn's disease of large intestine (K50.10) Active confirmed He was previously diagnosed with ulcerative proctitis in 2016 and has used intermittent mesalamine suppositories and oral medications in the past. His more recent colonoscopy in February showed a normal rectum, but there was mild localized inflammation in the proximal transverse colon, suggestive of Crohn's. He was advised follow-up in 3 years. Problem [id number] H/O hemorrhoid s (Z87.19) Active confirmed He has intermittent flares of external hemorrhoids however has been trying to consume a high-fiber diet and decrease time spent on toilet. He has not needed to use hemorrhoid treatments since his last office visit in July. He denies rectal pain or straining and is assymptomatic at this time. Vital Signs Height 68 in 01/14/2024 Weight 220 lbs 01/14/2024 BMI 33.45 kg/m2 01/14/2024 Procedures Procedure Date Ordered Date Performed Result Body Sit e Upper Endoscopy 01/14/2024 N/A Colonoscopy 01/14/2024 N/A Encounters Encounter Location Date Provider Diagnosis [facility] [address] [facility] [place] [address] 01/14/2024 Kassi Medrano Ulcerative proctitis K51.20 ; Diverticulosis of colon K57.30 ; Acid reflux K21.9 and Low iron E61.1 [facility] [address] [place] [address] 02/25/2024 Mathew Brewer Chronic GERD K21.9 [facility] [address] [place] [address] 03/01/2024 Mathew Brewer Colon cancer screeni ng Z12.11 and Ulcerative colitis K51.90 [facility] [address] [facility] [place] [address] 01/07/2024 Kassi Medrano [facility] [address] [facility] [place] [address] 01/14/2024 Mathew Brewer [facility], [address] [place] [address] 01/14/2024 Mathew Brewer [facility] [address] [place] [address] [place] [address] 01/14/2024 Mathew Brewer [facility], [address] [place] [address] 01/15/2024 Kassi Medrano Ulcerative proctitis K51.20 [facility], [address] [place] [address] 01/18/2024 Mathew Brewer [facility], [address] [place] [address] 03/22/2024 Mathew Brewer [facility], [address] [place] [address] 04/15/2024 Mathew Brewer Assessments Encounter Date Diagnosis (ICD Code) Assessment Notes Treatment Notes Treatment Clinical Notes Section Notes 01/14/2024 Ulcerative proctitis (ICD-10 - K51.20) Restart mesalamine. Medication profile and side effects reviewed with patient. If too expensive, he will call our office to discuss other medication options. Reviewed 2020 colonoscopy report. Will repeat colonoscopy. Procedure risks, benefits, indications, and alternatives were discussed. He wishes to proceed. He will sign a release form for recent blood work to be sent to our office for provider review and his chart. Pending review, he may warrant additional testing (CBC, CMP, CRP). ULCERATIVE PROCTITIS: Past use of mesalamine, has not been on medication due to cost. Has recently switched insurance. Denies alarm symptoms. Reports occasional flares 2-4 times a year. Reviewed 2020 colonoscopy report. DIVERTICULOSIS: Asymptomatic. ACID REFLUX: Several years of heartburn associated with late-night eating. Denies alarm symptoms. Differentials include uncontrolled GERD, hiatal hernia, nonulcer dyspepsia, gastritis, esophagitis, PUD, H. pylori, celiac disease, Bonilla's esophagus, and others LOW IRON: Recent Brenden found to have low iron. Report is unavailable today's visit. Started on oral iron supplement that cause black stools. Repeat blood work in February. Denies overt GI bleeding. Differentials include IBD, malignancy, overt GI bleeding, PUD, AVMs, and others. 01/15/2024 Ulcerative proctitis (ICD-10 - K51.20) Complete in 6 months 02/25/2024 Chronic GERD (ICD-10 - K21.9) 03/01/2024 Colon cancer screening (ICD-10 - Z12.11) 03/01/2024 Ulcerative colitis (ICD-10 - K51.90) 01/14/2024 Diverticulosis of colon (ICD-10 - K57.30) Start fiber supplement. If he develops diverticulitis symptoms, he may call our office or seek care in emergency room/urgent care. ULCERATIVE PROCTITIS: Past use of mesalamine, has not been on medication due to cost. Has recently switched insurance. Denies alarm symptoms. Reports occasional flares 2-4 times a year. Reviewed 2020 colonoscopy report. DIVERTICULOSIS: Asymptomatic. ACID REFLUX: Several years of heartburn associated with late-night eating. Denies alarm symptoms. Differentials include uncontrolled GERD, hiatal hernia, nonulcer dyspepsia, gastritis, esophagitis, PUD, H. pylori, celiac disease, Bonilla's esophagus, and others LOW IRON: Recent Brenden found to have low iron. Report is unavailable today's visit. Started on oral iron supplement that cause black stools. Repeat blood work in February. Denies overt GI bleeding. Differentials include IBD, malignancy, overt GI bleeding, PUD, AVMs, and others. 01/14/2024 Acid reflux (ICD-10 - K21.9) Start pantoprazole 40 mg daily. Medication profile and side effects reviewed. Trial of 8 to 12 weeks. Antireflux diet and lifestyle modifications reviewed. Schedule EGD. Procedure risks, benefits, indications, alternatives were discussed. He wishes to proceed. ULCERATIVE PROCTITIS: Past use of mesalamine, has not been on medication due to cost. Has recently switched insurance. Denies alarm symptoms. Reports occasional flares 2-4 times a year. Reviewed 2020 colonoscopy report. DIVERTICULOSIS: Asymptomatic. ACID REFLUX: Several years of heartburn associated with late-night eating. Denies alarm symptoms. Differentials include uncontrolled GERD, hiatal hernia, nonulcer dyspepsia, gastritis, esophagitis, PUD, H. pylori, celiac disease, Bonilla's esophagus, and others LOW IRON: Recent Brenden found to have low iron. Report is unavailable today's visit. Started on oral iron supplement that cause black stools. Repeat blood work in February. Denies overt GI bleeding. Differentials include IBD, malignancy, overt GI bleeding, PUD, AVMs, and others. 01/14/2024 Low iron (ICD-10 - E61.1) Continue on oral iron supplements per prescribing physician. Encouraged him to keep upcoming scheduled February appointment to repeat labs. ULCERATIVE PROCTITIS: Past use of mesalamine, has not been on medication due to cost. Has recently switched insurance. Denies alarm symptoms. Reports occasional flares 2-4 times a year. Reviewed 2020 colonoscopy report. DIVERTICULOSIS: Asymptomatic. ACID REFLUX: Several years of heartburn associated with late-night eating. Denies alarm symptoms. Differentials include uncontrolled GERD, hiatal hernia, nonulcer dyspepsia, gastritis, esophagitis, PUD, H. pylori, celiac disease, Bonilla's esophagus, and others LOW IRON: Recent Brenden found to have low iron. Report is unavailable today's visit. Started on oral iron supplement that cause black stools. Repeat blood work in February. Denies overt GI bleeding. Differentials include IBD, malignancy, overt GI bleeding, PUD, AVMs, and others. 01/14/2024 Other Mr. Martin verbalized a clear understanding of the plan and recommendations. All questions answered. He may call our office for new GI complaints or alarm symptoms as needed. This provider spent approximately 31 minutes of face to face time, time for documentation, and discussing care/treatment options with the patient ULCERATIVE PROCTITIS: Past use of mesalamine, has not been on medication due to cost. Has recently switched insurance. Denies alarm symptoms. Reports occasional flares 2-4 times a year. Reviewed 2020 colonoscopy report. DIVERTICULOSIS: Asymptomatic. ACID REFLUX: Several years of heartburn associated with late-night eating. Denies alarm symptoms. Differentials include uncontrolled GERD, hiatal hernia, nonulcer dyspepsia, gastritis, esophagitis, PUD, H. pylori, celiac disease, Bonilla's esophagus, and others LOW IRON: Recent Brenden found to have low iron. Report is unavailable today's visit. Started on oral iron supplement that cause black stools. Repeat blood work in February. Denies overt GI bleeding. Differentials include IBD, malignancy, overt GI bleeding, PUD, AVMs, and others. Plan Of Treatment Pending Test Test Name Order Date Upper Endoscopy 01/14/2024 Colonoscopy 01/02/2021 Colonoscopy 01/14/2024 CALPROTECTIN, STOOL 01/24/2022 LACTOFERRIN, QN, STOOL 01/24/2022 CMP: COMPLETE METABOLIC PANEL 01/24/2022 CMP: COMPLETE METABOLIC PANEL 01/15/2024 CBC With Differential/Platelet CBC With Differential/Platelet 4 CRP 01/24/2022 CRP 01/15/2024 Insurance Providers Payer Name Payer Address Payer Phone Subscriber Number Group Number Insured Name Patient Relationship to Insured Coverage Start Date Coverage End Date k [facility] [employer] [address] [place] [phone] [id number] Jered Martin Self - patient is the insured Medical (General) History Medical History History ICD Code GERD Ulcerative Colitis Hemorrhoids Diverticulosis Anemia Sleep Apnea Skin Cancer Hypertension Surgical History Surgery Date(Month/Year) Colonoscopy 02/2021 Appendectomy Left Ankle Ligament Tear [place] Teeth Extraction Hospitalization History Reason Date(Month/Year) Fall 2006 Fever of unknown origin - Fall 2006 Fever
--- OUTSIDE RECORDS SUMMARY | 2024-09-28 07:10 | XMS_ITS | Referral Summary ---
Author Organization [facility] Address [address] [facility] [address] [place] [phone] Phone Care Team Providers Care Camp Maintenance Supervisor Name Role Phone Jj Galindo MD Primary Care Provider [phone] Encounters Date Type Department Care Team Description 07/11/2024 12:30 PM CDT Office Visit [facility] at [address] [place] [address] Haritha Morton, ZUNILDA Impacted cerumen of right ear (Primary Dx); Hearing loss of left ear, unspecified hearing loss type from Last 3 Months Allergies Active Allergy Reactions Criticality Noted Date Comments Sulfa (Sulfonamide Antibiotics) Medications lisinopriL (PRINIVIL,ZESTRI L) 20 mg tablet Take 1 tablet (20 mg total) by mouth daily 04/22/2024 Active aspirin (ASPIR-81 ORAL) 07/15/2023 Act adelina mesalamine (LIALDA) 1.2 gram EC tablet 07/10/2024 Acti ve Active Problems No known active problems Social History Tobacco Use Types Packs/Day Years Used Date Smoking Tobacco: Never Assessed Sex and Gender Information Value Date Recorded Sex Assigned at Not on file 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 Gender Identity Not on file Sexual Orientation Not on file Last Filed Vital Signs Vital Sign Reading [...] 07/11/2024 12:30 PM CDT Plan of Treatment Not on file Procedures Procedure Name Priority Date/Time Associated Diagnosis Comments NV REMOVAL IMPACTED CERUMEN IRRIGATION/LVG UNILAT Routine 07/11/2024 12:30 PM CDT Impacted cerumen of right ear from Last 3 Months Results * NV REMOVAL IMPACTED CERUMEN IRRIGATION/LVG UNILAT (07/11/2024 12:30 [...] the procedure well with no immediate complications Haritha Morton NP IN CLINIC/BEDSIDE ORDERABLES F inal Result from Last 3 Months Insurance [facility] [id number] Care Teams Camp Maintenance Supervisor Relationship Specialty Start Date End Date Jj Galindo MD [address] [place] [address] PCP - General Family Medicine 07/11/24
--- OUTSIDE RECORDS SUMMARY | 2024-09-28 07:10 | XMS_ITS | Encounter Summary ---
Author Organization [facility] Address [address] [place] [address] Care Team Providers Care Rotating Equipment Engineer Name Role Phone Unavailable Primary Care Provider Unavailabl e Encounter Details Date Type Department Care Team (Late st Contact Info) Description 11/23/2023 Lab Requisition [facility] - DermPath Lab [address] [facility] [place] [id number] Rosalba Pereira DO [address] [facility] [address] [place] [address] Social History Tobacco Use Types Packs/Day Years Used Date Smoking Tobacco: Never Assessed Sex and Gender Information Value Date Recorded Sex Assigned at Not on file 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 Gender Identity Not on file Sexual Orientation Not on file documented as of this encounter Plan of Treatment Not on file documented as of this encounter Procedures Procedure Name Priority Date/Time Associated Diagnosis Comments DERMATOPATHOLOGY Routine 11/23/2023 9:23 AM CDT documented in this encounter Results * DERMATOPATHOLOGY (11/23/2023 9:23 AM CDT) Case Report Dermatopathology Report Case: [id number] Authorizing Provider: Rosalba Pereira DO Collected: 11/23/2023 09:23 AM Ordering Location: [facility] Physician [facility] - Received: 11/23/2023 04:08 PM DermPath Lab Pathologist: Christi Combs MD Specimen: Skin, right AC fossa 5:06 PM CDT DERMATOPATHOLOGY LABORATORY Final Diagnosis Specimen A. SKIN, right AC fossa: DERMAL HEMORRHAGE (I99.8) (see microscopic description) 4 5:06 PM CDT DERMATOPATHOLOGY LABORATORY at 1706 CDT Clinical History R/o NF VS VASCULAR VS PMX VS OTHR 4 5:06 PM CDT DERMATOPATHOLOGY LABORATORY Gross Description Specimen A: Received is one formalin filled container labeled with the patient's name and designated right AC fossa. The specimen consists of a shave biopsy measuring 6x5x1 mm. Jar 0. 4 5:06 PM CDT DERMATOPATHOLOGY LABORATORY Microscopic Description Specimen A. SKIN, right AC fossa: Sections show dermal hemorrhage. Additional deeper sections were obtained and reviewed. COMMENT: Given the superficial nature of the biopsy specimen, a deeper dermal or subcutaneous process cannot be excluded. 4 5:06 PM CDT DERMATOPATHOLOGY LABORATORY Disclaimer An external and internal positive and negative controls are appropriate for the histochemical, immunohistochemical and immunofluorescence stain(s) in this case (if any), except where stated explicitly. The performance characteristics of the stain(s) cited in this report were developed and its performance characteristic determined by the Dermatopathology Laboratory at [facility], directed by Dr. Saundra Morales. These tests need not be, and therefore are not, approved by the [place] Food and Drug Administration. The tests are used for clinical purposes. Billing Codes Specimen Charges Stain Charges 45977 1 4 5:06 PM CDT DERMATOPATHOLOGY LABORATORY Embedded Images 4 5:06 PM CDT DERMATOPATHOLOGY LABORATORY Pathology/Cytolo gy TISSUE SPECIMEN FROM SKIN / Unknown 11/23/2023 9:23 AM CDT 11/23/2023 4:08 PM CDT us Rosalba Pereira DO LAB - PATHOLOGY/CYTOLOGY ORDERABLES Final Result DERMATOPATHOLOGY LABORATORY [facility] - Department of Dermatology [address], [address] [phone] documented in this encounter Visit Diagnoses Not on filedocumented in this encounter
--- OUTSIDE RECORDS SUMMARY | 2024-09-28 07:10 | XMS_ITS | Encounter Summary ---
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 Gender Identity Not on file Sexual Orientation Not on file documented as of this encounter Plan of Treatment Not on file documented as of this encounter Procedures Procedure Name Priority Date/Time Associated Diagnosis Comments DERMATOPATHOLOGY Routine 10/14/2022 3:33 PM CDT documented in this encounter Results * DERMATOPATHOLOGY (10/14/2022 3:33 PM CDT) Case Report Dermatopathology Report Case: [id number] Authorizing Provider: Rosalba Pereira DO Collected: 10/14/2022 03:33 PM Ordering Location: [facility] DermPath Lab Received: 10/15/2022 11:53 AM Pathologist: Emy Srivastava MD Specimen: Skin, right cheek 12:54 PM CDT DERMATOPATHOLOGY LABORATORY Final Diagnosis Specimen A. SKIN, right cheek: INTRADERMAL MELANOCYTIC NEVUS (D22.39) 12:54 PM CDT DERMATOPATHOLOGY LABORATORY at 1254 CDT Clinical History R/O NEVUS, CUTS SHAVING 3 12:54 PM CDT DERMATOPATHOLOGY LABORATORY Gross Description Specimen A: Received is one formalin filled container labeled with the patient's name and designated right cheek. The specimen consists of a shave biopsy measuring 7x6x2 and 3x1x1 mm. Jar 0. 3 12:54 PM CDT DERMATOPATHOLOGY LABORATORY Microscopic Description Specimen A. SKIN, right cheek: There are nests of cytologically bland melanocytes within the dermis that mature with depth. 3 12:54 PM CDT DERMATOPATHOLOGY LABORATORY Disclaimer An external and internal positive and negative controls are appropriate for the histochemical, immunohistochemical and immunofluorescence stain(s) in this case (if any), except where stated explicitly. The performance characteristics of the stain(s) cited in this report were developed and its performance characteristic determined by the Dermatopathology Laboratory at [facility], directed by Dr. Saundra Morales. These tests need not be, and therefore are not, approved by the [place] Food and Drug Administration. The tests are used for clinical purposes. Billing Codes Specimen Charges Stain Charges 78469 1 3 12:54 PM CDT DERMATOPATHOLOGY LABORATORY Embedded Images 3 12:54 PM CDT DERMATOPATHOLOGY LABORATORY Pathology/Cytolo gy TISSUE SPECIMEN FROM SKIN / Unknown 10/14/2022 3:33 PM CDT 10/15/2022 11:53 AM CDT us Rosalba Pereira DO LAB - PATHOLOGY/CYTOLOGY ORDERABLES Final Result DERMATOPATHOLOGY LABORATORY [facility] - Department of Dermatology [address] [place] [address], [facility] [phone] documented in this encounter Visit Diagnoses Not on filedocumented in this encounter
== END 2024-09-28 07:06 | disposition home or self-care (01) ==
PROVIDERS: PCP Otolaryngology; Visit Provider Otolaryngology
DX: D33.3 Benign neoplasm of cranial nerves (principal)
CPT/HCPCS: 70553; A9579

== ENCOUNTER 2024-10-30 18:11 | Emergency (ER) | payer OTHER, SELFPAY ==
[2024-10-30 18:19] VITALS: BP 112/77; PULSE 81; RESP 16; TEMP 36.6; O2SAT 97
--- NOTE | 2024-10-30 18:19 | ED.EYEPROB ---
HPI - Eye Problem General Chief complaint: Eye Problems Stated complaint: Eye Irritation Time Seen by Provider: 10/30/24 18:23 Source: patient Mode of arrival: ambulatory Limitations: no limitations History of Present Illness HPI Narrative: 59-year-old male presented for complaint of right eye redness and pressure. Onset today. Redness is described as blood shot to the lower half of the eye. Says 2 days ago 'something' flew into his eye, and he believes was immediately removed. Had not issues until today. Does not recall rubbing the eye and says he does not feel like he has an abrasion. Denies FB sensation. Denies photophobia, drainage, vision changes, headache. Does not wear contact lenses. Currently rates pain 06/06. MD chief complaint: eye pain Related Data Home Medications ?Medication ?Instructions ?Recorded ?Confirmed ?Last Taken ?Type aspirin 81 mg capsule 81 mg PO DAILY 09/16/23 11/09/23 Unknown History lisinopril 20 mg tablet 20 mg PO DAILY 09/16/23 11/09/23 Unknown History mesalamine 1.2 gram tablet,delayed g PO 09/05/24 Unknown History release ascorbic acid (vitamin C) 500 mg 10/30/24 Unknown History tablet cyanocobalamin (vitamin B-12) mcg 10/30/24 Unknown History 1,000 mcg sublingual tablet ferrous sulfate 325 mg (65 mg mg 10/30/24 Unknown History iron) tablet Allergies Allergy/AdvReac Type Severity Reaction Status Date / Time Sulfa (Sulfonamide Allergy Mild Rash Verified 10/30/24 18:29 Antibiotics) Review of Systems Review of Systems: CONSTITUTIONAL: Denies body aches, fever, chills EYES:Endorses redness and discomfort to right eye. Denies swelling, FB sensation, photophobia, or visual changes ENT: Denies rhinorrhea, congestion, sore throat, or otalgia. CARDIOVASCULAR: Denies chest pain, palpitations RESPIRATORY: Denies cough or dyspnea. GASTROINTESTINAL: Denies abdominal pain, nausea, vomiting, or diarrhea. SKIN: Denies rash MUSCULOSKELETAL: Denies back pain, joint pain, or myalgia. NEUROLOGIC: Denies headache, numbness, tingling, or weakness. All systems reviewed & are unremarkable except as noted in HPI and below PMFSH Past Medical History Medical History Hypertension Ulcerative colitis Surgical History Surgical History History of laparoscopic appendectomy 09/16/23 History of colonoscopy Social History Social History Smoking status: Unknown if ever smoked Do You Feel Safe in your Home?: Yes Lack of Transportation: No Lack of Food: Never True Current Housing: I Have Housing Concerned About Future Housing: No Difficulty Paying Gas/Electric Bills: No Difficulty Paying for Meds: No Currently Unemployed: No Education: Master's Degree or Higher Difficulty w/ Childcare or Family Care: No Comments At time of signature, I have reviewed and agree with nursing past medical, surgical, social and family history unless otherwise noted. Please see nursing chart for further information. There is no relevant family history pertinent to the presenting complaint Exam Narrative: GENERAL: Well-appearing HEAD: Normocephalic, atraumatic. EYES: right subconjunctival hemorrhage to the lower half of the eye. No eye lid swelling or drainage, PERRLA, EOMI. Lid eversion shows no FB. No corneal abrasion noted on Wood's lamp exam ENT: Mucous membranes pink and moist. No rhinorrhea. CHEST: Clear to auscultation. HEART: Regular rate and rhythm. ABDOMEN: Soft, nontender, nondistended SKIN: Warm, dry, no rash. Normal skin turgor. NEURO: No focal deficits. Alert and oriented x3 PSYCH: Normal affect. Course Course Emergency Course: Patient is aware of diagnosis, understands and agrees to treatment plan. Anticipatory guidance given. Patient agrees to follow-up as directed and is aware of reasons to seek care at the emergency department. Portions of this record may have been created with voice recognition software Level of Care: Express Care Visit Procedures FB Removal Eye Foreign Body #1: Foreign Body Removal Date: 10/30/24 Location: eye (R) Topical anesthetic used: tetracaine Evidence of corneal penetration: No Procedure performed under: other ( Wood's lamp) Patient tolerated procedure: well and no complications Foreign Body Removal Narrative: right eye was anesthetized with 1 drop of tetracaine and anesthesia was achieved. Lid was everted and examined for foreign body. No foreign body, corneal abrasion, or ulceration identified with Bhatti lamp. The eye was flushed with eye wash. Pt tolerated procedure well. MDM - Eye Problem MDM Narrative Medical decision making narrative: Discussed physical exam findings c/w right subconjunctival hemorrhage. Prescription for erythromycin ointment. Advised follow-up with eye doctor. Visual acuity 20/20. Advised supportive measures and signs/symptoms to go to the ER At length. Pt is appropriate for outpt treatment and f/u. Differential Diagnosis Differential diagnosis: Likely corneal abrasion, conjunctivitis, acute iritis and other Discharge Plan Discharge Clinical Impression: Subconjunctival hemorrhage Patient Disposition: Home Condition: Stable Instructions: Antibiotic Form, Hemorragia subconjuntival (ED) Additional Instructions: A subconjunctival hemorrhage can occur after a sudden or severe sneeze or cough, heavy lifting, straining, vomiting, or even rubbing one's eyes too roughly. The redness may spread and then become green or yellow, like a bruise. It should disappear within two weeks. Use the drops as directed Tylenol as needed for pain Monitor for pain, drainage, vision changes, headache; go to the ER for any concerns Please follow up with an core winder, call tomorrow to schedule an appointment. [facility] [phone] [facility] [phone] [facility] [phone] [facility] [phone] Patient Language: Wolof Prescriptions: New erythromycin 5 mg/gram (0.5 %) ointment 1 applic RIGHT EYE Q4HWA 7 Days Qty: 3.5 0RF No Action ascorbic acid (vitamin C) 500 mg tablet ferrous sulfate 325 mg (65 mg iron) tablet cyanocobalamin (vitamin B-12) 1,000 mcg tablet, sublingual mesalamine 1.2 gram tablet,delayed release (DR/EC) PO lisinopril 20 mg tablet 20 mg PO DAILY aspirin 81 mg Capsule 81 mg PO DAILY Follow-up/Referrals: Josie,Jj Barlow MD [Primary Care Provider] - Time of Disposition: 18:50
[2024-10-30] MEDS: DACRIOSE EYE IRRIGATION 118 ML BOTTLE AFFCTD EYE (18:36)
[2024-10-30] MEDS: TETRACAINE HCL 0.5% OPHTH SOLN 4 ML BTL AFFCTD EYE (18:36)
[2024-10-30] MEDS: FLUORESCEIN SOD 1 MG/STRIP AFFCTD EYE (18:36)
== END 2024-10-30 18:55 | disposition home or self-care (01) ==
PROVIDERS: Emergency Provider Nurse Practitioner Family; PCP Family Medicine
DX: H11.31 Conjunctival hemorrhage, right eye (principal); I10 Essential (primary) hypertension; Z79.82 Long term (current) use of aspirin
CPT/HCPCS: 99213; A9270; G0463